=== PATIENT | female | born 1960 | race American Indian/Alaskan Native ===

== ENCOUNTER 2017-04-28 12:56 | Inpatient (IN) | payer OTHER ==
[2017-04-28] MEDS ORDERED: ASPIRIN PO ONE (13:14)
[2017-04-28] MEDS ORDERED: ZOFRAN IV ONE (13:14)
[2017-04-28] MEDS ORDERED: NACL 0.9% 1000 ML 1,000 ML IV ONE (13:14)
[2017-04-28] MEDS ORDERED: XYLOCAINE 2% INFILTRATI ONE (13:20)
[2017-04-28] MEDS ORDERED: HEPARIN/NS 5000 UNIT/500ML(CATH LAB) 1,000 ML IR ONE (13:20)
[2017-04-28] MEDS ORDERED: CALAN ONE (13:20)
[2017-04-28] MEDS ORDERED: NITROGLYCERIN SYRINGE 3 ML ONE (13:20)
--- NOTE | 2017-04-28 13:21 | Emergency Department Report ---
ED Chest Pain HPI - General Chief Complaint: Chest Pain Stated Complaint: CHEST PAIN Time Seen by Provider: 04/28/17 13:06 Source: patient, old records reviewed (no previous visit) Mode of arrival: Ambulatory Limitations: No Limitations - History of Present Illness Initial Comments: 56-year-old female with no known past medical history presents to the hospital complaining of sudden onset chest pain at 11 AM. Pain is in her sternal area, radiating to the back described as sharp and constant and moderate in intensity. Positive shortness of breath, nausea, vomiting, and diaphoresis reported. Intermittent paresthesias to both fingertips both hands. Last time patient saw a primary care doctor was in September. Patient does smoke cigarettes but does not take any medications. She states that her father had a defibrillator placed and her brother had a triple bypass at age 47. Patient has never had any cardiac workup in the past. - Related Data Home Medications Medication Instructions Recorded Confirmed Last Taken No Known Home Medications [No 04/28/17 04/28/17 Unknown Reported Home Medications] Allergies Allergy/AdvReac Type Severity Reaction Status Date / Time No Known Allergies Allergy Verified 04/28/17 13:08 Heart Score - HEART Score History: Moderately suspicious EKG: Significant ST-depression Age: 45-65 Risk factors: 1-2 risk factors Troponin: 1-3x normal limit HEART Score: 6 ED Review of Systems ROS: Stated complaint: CHEST PAIN Other details as noted in HPI Comment: All other systems reviewed and negative Other: Constitutional: No fevers chills Eyes: No eye pain visual changes ENT: No ear pain or throat pain Neck: Denies pain Respiratory: Denies cough wheezing Cardiovascular: Denies palpitations, syncope GI: Denies abdominal pain, diarrhea : Denies dysuria Musculoskeletal: Denies back pain Skin: Denies rash, lesions, erythema Neurologic: Denies headache, numbness, weakness Psychiatric: Denies suicidal ideation, hallucinations ED Past Medical Hx - Past Medical History Previous Medical History?: No - Surgical History Past Surgical History?: No - Social History Smoking Status: Current Every Day Smoker Substance Use Type: None - Medications Home Medications: Home Medications Medication Instructions Recorded Confirmed Last Taken Type No Known Home Medications [No 04/28/17 04/28/17 Unknown History Reported Home Medications] ED Physical Exam - General Limitations: No Limitations - Other Other exam information: General: No limitations, patient is alert in no acute distress Head exam: Atraumatic, normocephalic Eyes exam: Normal appearance ENT: Moist mucous membrane, normal oropharynx Neck exam: Normal inspection, full range of motion, no meningismus nontender Respiratory exam: Clear to auscultation bilateral, no wheezes, rales, crackles Cardiovascular: Normal rate and rhythm, sternal chest wall tenderness that patient reports is different from her other chest pain Abdomen: Soft, nondistended, and nontender, with normal bowel sounds, no rebound, or guarding Extremity: Full range of motion normal inspection no deformity, no calf tenderness or edema Back: Normal Inspection, full range of motion, no tenderness Neurologic: Alert, oriented x3, cranial nerves intact, no motor or sensory deficit Psychiatric: normal affect, normal mood Skin: Warm, dry, intact ED Course Vital Signs 04/28/17 04/28/17 04/28/17 12:56 13:00 13:04 Temperature 98.3 F Pulse Rate 85 85 82 Pulse Rate [ From Monitor] Respiratory 12 16 Rate Blood Pressure 155/86 155/86 O2 Sat by Pulse 100 100 100 Oximetry 04/28/17 04/28/17 04/28/17 13:10 13:15 13:20 Temperature Pulse Rate 90 91 H Pulse Rate [ From Monitor] Respiratory 17 10 L 12 Rate Blood Pressure 155/86 O2 Sat by Pulse 100 100 100 Oximetry 04/28/17 04/28/17 04/28/17 13:27 13:32 15:42 Temperature Pulse Rate 92 H 80 Pulse Rate [ From Monitor] Respiratory Rate Blood Pressure 160/91 160/91 O2 Sat by Pulse 94 Oximetry 04/28/17 04/28/17 04/28/17 15:50 16:00 16:08 Temperature 98.6 F 98.2 F Pulse Rate 79 72 0 L Pulse Rate [ 82 From Monitor] Respiratory 14 14 0 L Rate Blood Pressure 130/79 134/78 0/0 O2 Sat by Pulse 95 96 0 L Oximetry 04/28/17 04/28/17 04/28/17 16:10 16:20 16:30 Temperature Pulse Rate 93 H 77 69 Pulse Rate [ From Monitor] Respiratory 12 14 11 L Rate Blood Pressure 134/78 130/79 144/79 O2 Sat by Pulse 98 98 98 Oximetry 04/28/17 04/28/17 04/28/17 16:40 16:50 17:00 Temperature 97.1 F L Pulse Rate 75 78 80 Pulse Rate [ From Monitor] Respiratory 19 12 14 Rate Blood Pressure 144/79 133/82 145/78 O2 Sat by Pulse 99 98 99 Oximetry 04/28/17 04/28/17 04/28/17 17:10 17:20 17:30 Temperature Pulse Rate 76 77 76 Pulse Rate [ From Monitor] Respiratory 19 24 21 Rate Blood Pressure 145/86 150/86 144/78 O2 Sat by Pulse 97 96 97 Oximetry 04/28/17 17:40 Temperature Pulse Rate 75 Pulse Rate [ From Monitor] Respiratory 15 Rate Blood Pressure 144/78 O2 Sat by Pulse 98 Oximetry - Reevaluation(s) Reevaluation #1: 04/28/17 13:21 Aspirin, nitroglycerin sublingual, heparin bolus ordered - Consultations Consultation #1: 04/28/17 13:10 Dr Baugh will take pt to lab specialist JOAQUIN score - Joaquin Score Age > 65: (0) No Aspirin use within the Past 7 Days: (0) No 3 or more CAD Risk Factors: (1) Yes 2 or more Angina events in past 24 hrs: (0) No Known CAD with more than 50% Stenosis: (0) No Elevated Cardiac Markers: (1) Yes ST Deviation Greater than 0.5mm: (1) Yes JOAQUIN Score: 3 ED Medical Decision Making - Lab Data Result diagrams: 04/30/17 07:31 04/30/17 07:31 - EKG Data -: EKG Interpreted by Me (sinus rate [address] elevation WA) - EKG Data When compared to previous EKG there are: previous EKG unavailable - Radiology Data Radiology results: report reviewed (cxr: naf) - Medical Decision Making EKG possibly has subtle findings of ST elevation WA in the anterior leads. This was reviewed by health and wellness coordinator. Patient will be taken to the [facility] for further treatment. - Differential Diagnosis costochondritis, WA, PE, unstable angina, atypical chest pain, dissection Critical Care Time: No Critical care attestation.: If time is entered above; I have spent that time in minutes in the direct care of this critically ill patient, excluding procedure time. ED Disposition Clinical Impression: Chest pain at rest, STEMI (ST elevation myocardial infarction), Elevated blood pressure reading Disposition: OP ADMIT IP TO THIS HOSP Is pt being admited?: Yes Condition: Stable Time of Disposition: 13:22 (Dr baugh/felipe)
[2017-04-28] MEDS ORDERED: NACL 0.9% 1000 ML 1,000 ML ONE (13:23)
[2017-04-28 13:25] LABS: Basophils % (Auto) 0.7 % (0.0-1.8); Eosinophils % (Auto) 0.6 % (0.0-4.3); Hematocrit 42.5 % (30.3-42.9); Mean Corpuscular HGB Conc 33 % (30-34); Mean Corpuscular Hemoglobin 29 pg (28-32); Mean Corpuscular Volume 87 fl (79-97); Platelet Count 321 K/mm3 (140-440); Red Blood Count 4.86 M/mm3 (3.65-5.03); Red Cell Distribution Width 14.4 % (13.2-15.2); White Blood Count 11.8 K/mm3 (4.5-11.0)
[2017-04-28] MEDS: NITROSTAT SL PRN ×5 (13:27→22:16)
[2017-04-28 13:54] LABS: Creatine Kinase MB 13.5 ng/mL (0.0-4.0)
[2017-04-28 13:55] LABS: Anion Gap 21 mmol/L; BUN/Creatinine Ratio 11.66; Blood Urea Nitrogen 7 mg/dL (7-17); Calcium 8.7 mg/dL (8.4-10.2); Carbon Dioxide 22 mmol/L (22-30); Chloride 96.1 mmol/L (98-107); Creatine Kinase 193 units/L (30-135); Glucose 128 mg/dL (65-100); Potassium 3.6 mmol/L (3.6-5.0); Sodium 135 mmol/L (137-145)
[2017-04-28 13:58] LABS: INR 0.84 (0.87-1.13)
[2017-04-28 13:59] LABS: Partial Thromboplastin Time 24.2 Sec. (24.2-36.6)
[2017-04-28] MEDS: VERSED ONE ×2 (14:00→14:22)
[2017-04-28] MEDS: SUBLIMAZE ONE ×2 (14:00→14:22)
[2017-04-28] MEDS ORDERED: HEPARIN 10,000 UNITS/10 ML IV ONE (14:00)
[2017-04-28] MEDS ORDERED: HEPARIN/ 0.45% NACL-25,000 UNIT/500 ML 25,000 UNIT/500 ML BAG IV SCH (14:00)
[2017-04-28] MEDS: HEPARIN 10,000 UNITS/10 ML ONE ×2 (14:05→14:07)
[2017-04-28] MEDS ORDERED: ZOFRAN ONE (14:19)
[2017-04-28] MEDS ORDERED: EFFIENT PO ONE (14:30)
[2017-04-28] MEDS ORDERED: ALUM-MAG HYDROX-SIMETH 200-200-20MG/5ML ONE (14:30)
[2017-04-28 16:49] LABS: Creatine Kinase MB 275.7 ng/mL (0.0-4.0)
[2017-04-28] MEDS ORDERED: TYLENOL PO PRN (20:19)
[2017-04-28] MEDS ORDERED: ZOFRAN IV PRN (20:19)
[2017-04-28] MEDS: COREG PO SCH (21:14)
[2017-04-28 21:30] LABS: Creatine Kinase MB 249.9 ng/mL (0.0-4.0)
[2017-04-28] MEDS ORDERED: ZESTRIL PO SCH (22:00)
--- NOTE | 2017-04-29 02:55 | Cardiac Catherization Report ---
INDICATION: The patient is a 56-year-old -[place] female started having anterior chest pain at around 10:30 when she was planning to go to [place], persistent chest pain, shortness of breath, nausea, sweating, called her fiance who called the ambulance and brought to the Emergency Room, noted to have mild ST elevations in 1 and aVL suggestive but not diagnostic for anterior left myocardial infarction. Because of persistent chest pain consistent with acute coronary syndrome, the patient was brought to the catheterization laboratory on an emergency basis. The patient and fiance were explained of the procedure, potential complications and alternatives of therapy and agreeable with the plan. They were made aware of the diagnosis of myocardial infarction. DESCRIPTION OF PROCEDURE: The patient was brought to the catheterization laboratory in a fasting condition. Right wrist area and forearm thoroughly cleansed with Betadine solution. Sterile drapes were applied. Local anesthesia was achieved using 2% Xylocaine. Right radial artery puncture was made using 21-gauge arterial puncture needle. Subsequently, a 6-Pakistani sheath was introduced. Initially a 6-Pakistani EBU catheter was engaged in the left coronary artery. This showed evidence of occluded mid LAD with no visualization of the distal vessel. After giving extra dose of IV heparin, a 0.014 inch [place] XT guide wire was advanced into the distal LAD without difficulty. Lesion was dilated with 2.5 x 15 mm balloon to 8 atmospheres, followed by placement of a 2.5 x 18 mm Resolute Integrity stent expanded to 9 atmospheres with very good result. JOAQUIN 3 flow was zero at the beginning and it was JOAQUIN 3 at the end of the procedure. The lesion was reduced from 100% to 0%. No complications of dissection or perforation or embolization noted. The patient did continue to have chest pain, but had reperfusion arrhythmia namely peak ventricular ectopy, which subsided by the end of the procedure. The patient otherwise has been stable hemodynamically. After the intervention of the LAD, angiograms of the right coronary artery were obtained using multipurpose catheter and also left ventriculogram was performed in VERGARA and ETHIOPIAN projection. Following findings were noted. HEMODYNAMICS: 1. Opening aortic pressure 144/78, left ventricular pressure 146/27. No gradient across the aortic valve. Estimated ejection fraction 30-35%. 2. Left ventriculogram done in VERGARA projection shows akinesis of the distal one-third to one-half of the left ventricle with the basal part moving reasonably well. Overall, ejection fraction is moderately impaired in the range of 30-35%. Mitral regurgitation could not be evaluated. 3. Right coronary artery is a dominant vessel shows minimal irregularities, arises normally from right coronary cusp. Left coronary angiography showed left main to be without significant disease. Proximal LAD has mild disease and mid LAD is occluded with no visualization of the distal vessel. Circumflex artery nondominant vessel and its branches are angiographically smooth without significant disease. Proximal diagonal branch shows mild disease. INTERVENTIONAL PROCEDURE: As mentioned above. Intervention of the LAD was performed using right radial access and using EBU 3.5 6-Pakistani guiding catheter. Heparin was used as anticoagulant. A 0.014 inch [place] XT wire was advanced into the distal LAD without difficulty and mid LAD was 100% occluded. Lesion was dilated with 2.5 x 12 mm balloon followed by placement of 2.5 x 18 mm Resolute Integrity stent inflated to 9 atmospheres with very good result. JOAQUIN 3 flow was noted. Lesion was reduced from 100% to 0%. No proximal or distal dissection noted. No evidence of perforation or embolization noted. The patient did have some chest pain after the procedure, but subsided subsequently. Had ventricular arrhythmia during reperfusion which subsided at the end of the procedure. The patient is hemodynamically stable. FINAL IMPRESSION: 1. Anterior left myocardial infarction with significant left ventricular dysfunction including the distal one-third to distal half of the left ventricle with occluded mid LAD, successfully reperfused with drug-eluting stent placement. Circumflex and RCA without significant disease. 2. Significant LV dysfunction with successful drug-eluting stent placement of the mid LAD. The patient will be admitted to CCU and medical therapy will be continued. The patient will be started on aspirin, prasugrel, in addition to Lipitor, carvedilol and lisinopril. The patient's sheath will be removed once ACT is less than 180. No untoward complications were noted. Findings were explained to the patient and fiance. JOB# [id number] RHONDA/DEVANG
--- NOTE | 2017-04-29 03:09 | History and Physical Report ---
HISTORY OF PRESENT ILLNESS: This is a 56-year-old -[place] female, who was getting ready to go to [place] around 10:30, she started having anterior chest pain associated with nausea and vomiting. The pain got worse. She called her and paramedics were called in and the EKG did not show any significant changes; however, because of persistent chest pain, she was brought to the Emergency Room, was evaluated by Dr. Bassett and EKG showed minor ST elevations in 1 and aVL suggestive, if not diagnostic, of acute anterolateral injury. Because of persistent chest pain with sweating, shortness of breath, the patient was taken to the catheterization laboratory on an emergency basis as a part of the STEMI protocol. The patient denies any previous cardiac history. She did not have any chest pain before. She is being followed by a physician in ____ regularly, last time in September, on no medication. No history of hypertension or diabetes or other significant problems. MEDICATIONS AT HOME: None. ALLERGIES: None known. REVIEW OF SYSTEMS: The patient was doing well up to this morning when she started having chest pain. No previous history of hypertension or diabetes. She is smoking for a while. No history of alcohol use or drug use. No history of strokes or seizures. No history of peptic ulcer disease. Denies any fever, coughing, chills. No unusual headaches. PHYSICAL EXAMINATION: VITAL SIGNS: Blood pressure is 140/60, pulse 90 per minute, afebrile. HEENT: Unremarkable. Conjunctivae pink. Sclerae anicteric. NECK: Supple. No JVD. HEART: Regular, probably S4, no S3. LUNGS: Clear. ABDOMEN: Benign. EXTREMITIES: Without edema. NEUROLOGIC: Alert, oriented x3. FINAL IMPRESSION: Acute anterolateral myocardial infarction of few hours' duration with minimal ST changes; however, persistent chest pain. The patient is being scheduled. The patient was taken to the catheterization laboratory as a part of the STEMI protocol and was noted to have occluded mid left artery descending, which was intervened with a balloon angioplasty and drug-eluting stent placement. Right radial artery was used. The procedure was uncomplicated. The patient does have a significant left ventricular dysfunction with akinesis of the distal one-third to one-half of the left ventricle consistent with acute anterolateral myocardial infarction. The patient will be admitted to CCU, monitored closely, and will be continued on aspirin, prasugrel, lisinopril, carvedilol in addition to Lipitor. The patient is hemodynamically stable at this point and rhythm being sinus. Discussed with the patient and her fiance. The patient will be admitted to CCU. JOB# [id number] RHONDA/NTS
[2017-04-29 04:22] LABS: Basophils % (Auto) 0.6 % (0.0-1.8); Eosinophils % (Auto) 0.4 % (0.0-4.3); Hematocrit 39.2 % (30.3-42.9); Hemoglobin 12.7 gm/dl (10.1-14.3); Mean Corpuscular HGB Conc 33 % (30-34); Mean Corpuscular Hemoglobin 28 pg (28-32); Mean Corpuscular Volume 86 fl (79-97); Platelet Count 269 K/mm3 (140-440); Red Blood Count 4.55 M/mm3 (3.65-5.03); Red Cell Distribution Width 14.3 % (13.2-15.2); White Blood Count 12.9 K/mm3 (4.5-11.0)
--- NOTE | 2017-04-29 04:40 | Admit Criteria Form ---
Admission Criteria Documentation: MYOCARDIAL INFARCTION Clinical Indications for Admission to Inpatient Care (Place 'X' for any and all applicable criteria): Admission is indicated for 1 or more of the following (1)(2)(3)(4): [ X]I. Acute IN [ ]II. Contraindications and/or Inappropriate clinical situations for Observational Care in patients with Myocardial Infarction, when ANY ONE of the following is required: [ ]a) Patient with High risk of cardiac embolism (e.g, patients with previous cardiac embolism, LVEF < 40%, age >75 and patients with prosthetic valve) 18 [ ]b) Patient with Moderate risk including DM patient, CAD and patient aged 65-75 18 [ ]c) Patient with any change in cardiac biomarker especially troponin should be managed as high risk in an inpatient setting 19 [ ]d) Physician judgement irrespective of ECG and other diagnostic findings 20 [ ]III.General contraindications and/or Inappropriate clinical situations for Observational Care in patients with Myocardial Infarction, when ANY ONE of the following is required: [ ]a) Prediction of prolongation of LOS based on ANY ONE of the following may be considered as a contraindication for observational care 2, 3, 4, 5, 6, 7, 8, 9, 10, 11 [ ]i) Age > 65 yrs. [ ]ii) Patient arriving by ambulance [ ]iii) Patient with high acuity [ ]iv) Patient requiring vital sign monitoring [ ]v) Patient on IV medication [ ]b) Systolic blood pressures greater than or equal to 180mmHg 3,12 [ ]c) Patient with altered mental status including delirium and other alteration of consciousness, (3) [ ]d) Patient whose discharge disposition will be to a half-way home or rehabilitation home should not be managed in Emergency Department Observation Unit. CMS rule requires 3 days hospital stay before such placement. 3,13 [ ]e) Patient with failure to thrive due to broad array of etiologies 3 ,16,17 [ ]f) Inability to ambulate 3,14 Extended stay beyond goal length of stay may be needed for (1)(18)(20)(24)(25): [ ]a) Hemodynamic instability, persisting symptoms after intensive medical management, or recurring severe, prolonged symptoms [ ]b) Intravascular procedural complications such as acute vessel closure, stent thrombosis, stent malposition, or vessel dissection (26)(27)(28) [ ]c) Extravascular procedural complications such as retroperitoneal hematoma , pericardial effusion, or cardiac tamponade [ ]d) Entry site complications causing bleeding, hematoma or distal ischemia and requiring ongoing monitoring, surgical repair or surgical thrombectomy. Dangerous arrhythmia [ ]e) Complicated percutaneous coronary intervention (e.g., unsuccessful percutaneous coronary intervention or percutaneous coronary intervention of non- [place] vessel) [ ]f) Urgent or emergent surgery for complications of IN (e.g., ventricular rupture, valvular insufficiency) [ ]g) Surgical revascularization via coronary artery bypass graft [ ]h) Heart failure (e.g., pulmonary edema) [ ]i) Unstable pulmonary comorbidities, including COPD or pneumonia (31) [ ]j) Acute renal failure The original [employer] content created by [employer] has been revised. The portions of the content which have been revised are identified through the use of italic text or in bold, and [employer] has neither reviewed nor approved the modified material. All other unmodified content is copyright [facility] [employer] Please see references footnoted in the original [facility] edition 2016 Admission Criteria Met: Yes
[2017-04-29 04:42] LABS: Creatine Kinase MB 226.1 ng/mL (0.0-4.0)
[2017-04-29 04:43] LABS: Anion Gap 17 mmol/L; Blood Urea Nitrogen 5 mg/dL (7-17); Calcium 8.6 mg/dL (8.4-10.2); Carbon Dioxide 24 mmol/L (22-30); Chloride 99.9 mmol/L (98-107); Glucose 98 mg/dL (65-100); Potassium 3.6 mmol/L (3.6-5.0); Sodium 137 mmol/L (137-145)
[2017-04-29 05:07] LABS: Creatine Kinase 2268 units/L (30-135)
--- NOTE | 2017-04-29 07:41 | XRay Report ---
PORTABLE CHEST INDICATION: Chest pain. COMPARISON: None similar at this institution. FINDINGS: Portable, frontal chest radiograph demonstrates normal cardiomediastinal silhouette and clear lungs, given the inspiration. No large pleural effusions or CHF. Few extrinsic artifacts. Intact bones. CONCLUSION: No acute disease. Thank you for the opportunity to participate in this patient's care.
--- NOTE | 2017-04-29 07:57 | XRay Report ---
PORTABLE CHEST INDICATION: Post PCI. COMPARISON: Yesterday. FINDINGS: Portable, frontal chest radiograph, 2:02 AM, 04/29/2017 demonstrates grossly stable cardiomediastinal silhouette. Slight hazy bronchovascular crowding throughout both lungs may be related to poor inspiration. No pleural effusions or CHF. Intact bones. EKG leads. CONCLUSION: No significant acute chest process, as described. Thank you for the opportunity to participate in this patient's care.
--- NOTE | 2017-04-29 09:43 | Progress Note ---
Assessment and Plan pt is awaiting echo, transfer to telemtry, discussed with pt and family at bedside, adjusted bp meds and hold aldactone for low bp - Patient Problems (1) ACS (acute coronary syndrome) Current Visit: Yes Status: Acute (2) Acute combined systolic and diastolic CHF, NYHA class 4 Current Visit: Yes Status: Acute (3) Hypertension Current Visit: Yes Status: Chronic Qualifiers: Hypertension type: essential hypertension Qualified Code(s): I10 - Essential (primary) hypertension (4) Acute respiratory failure Current Visit: Yes Status: Acute Qualifiers: Respiratory failure complication: hypoxia Qualified Code(s): J96.01 - Acute respiratory failure with hypoxia (5) Hyperlipemia, mixed Current Visit: Yes Status: Chronic (6) Smoker Current Visit: Yes Status: Chronic Plan to address problem: pt has been educated about smoking cessation with material and teaching Subjective Date of service: 04/29/17 Principal diagnosis: acs Interval history: pt sitting in the chair without chest pain or sob Objective Vital Signs Temp Pulse Pulse Resp BP Pulse Ox 04/29/17 06:10 75 18 114/70 98 04/29/17 06:00 77 18 124/70 99 04/29/17 05:50 69 18 114/70 99 04/29/17 05:40 82 17 128/74 99 04/29/17 05:33 98.5 F 04/29/17 05:30 65 18 116/73 98 04/29/17 05:20 67 18 120/73 99 04/29/17 05:10 68 18 129/74 98 04/29/17 05:00 67 18 129/74 98 04/29/17 04:50 69 18 128/74 97 04/29/17 04:40 84 19 124/71 97 04/29/17 04:30 66 18 124/71 98 04/29/17 04:20 67 19 125/76 98 04/29/17 04:10 69 18 125/71 97 04/29/17 04:00 70 18 125/71 98 04/29/17 03:50 74 11 L 119/69 97 04/29/17 03:47 71 18 98 04/29/17 03:40 75 16 125/75 98 04/29/17 03:30 75 19 125/75 98 04/29/17 03:20 71 19 126/71 98 04/29/17 03:10 69 16 120/71 98 04/29/17 03:00 68 20 120/71 97 04/29/17 02:50 71 20 130/73 97 04/29/17 02:40 71 19 121/69 97 04/29/17 02:30 65 21 121/69 98 04/29/17 02:20 67 22 116/67 97 04/29/17 02:10 68 11 L 112/66 97 04/29/17 02:00 75 20 112/66 97 04/29/17 01:50 77 20 122/71 97 04/29/17 01:40 69 19 117/66 97 04/29/17 01:30 69 18 116/71 97 04/29/17 01:20 63 18 116/65 98 04/29/17 01:10 67 20 115/69 97 04/29/17 01:00 71 20 115/69 97 04/29/17 00:50 69 21 117/66 97 04/29/17 00:40 68 22 122/69 97 04/29/17 00:36 98.5 F 04/29/17 00:30 67 22 122/69 97 04/29/17 00:20 67 20 123/72 97 04/29/17 00:10 68 16 128/73 98 04/29/17 00:00 66 87 0 L 128/73 98 04/28/17 23:50 67 6 L 128/73 98 04/28/17 23:40 73 21 124/72 99 04/28/17 23:30 67 22 124/72 99 04/28/17 23:20 66 19 120/75 99 04/28/17 23:10 92 H 16 124/67 99 04/28/17 23:00 66 19 124/67 100 04/28/17 22:50 78 12 119/61 99 04/28/17 22:40 69 19 112/67 99 04/28/17 22:30 72 17 112/67 99 04/28/17 22:20 75 15 120/71 99 04/28/17 22:16 71 123/78 04/28/17 22:10 88 14 123/78 97 04/28/17 22:00 76 10 L 132/80 98 04/28/17 21:55 87 147/93 04/28/17 21:50 81 14 147/93 98 04/28/17 21:40 72 25 H 145/90 99 04/28/17 21:30 82 8 L 145/90 100 04/28/17 21:20 71 18 147/86 100 04/28/17 21:14 75 142/89 04/28/17 21:10 71 14 142/89 100 04/28/17 21:00 74 12 142/89 100 04/28/17 20:50 67 12 149/81 100 04/28/17 20:49 98.4 F 04/28/17 20:40 70 19 143/86 100 04/28/17 20:30 81 13 143/86 97 04/28/17 20:20 78 14 139/86 99 04/28/17 20:10 81 13 144/82 99 04/28/17 20:00 73 81 17 144/82 99 04/28/17 19:50 76 14 140/88 98 04/28/17 19:40 96 H 14 135/80 97 04/28/17 19:30 72 14 135/80 99 04/28/17 19:20 82 16 142/80 97 04/28/17 19:10 74 11 L 142/78 99 04/28/17 19:00 77 19 142/78 96 04/28/17 18:50 75 17 143/79 98 04/28/17 18:40 75 17 139/86 98 04/28/17 18:30 85 10 L 139/86 98 04/28/17 18:20 75 14 134/81 98 04/28/17 18:10 74 11 L 132/80 98 04/28/17 18:00 86 15 132/80 98 04/28/17 17:50 77 21 144/78 97 04/28/17 17:40 75 15 144/78 98 04/28/17 17:30 76 21 144/78 97 04/28/17 17:20 77 24 150/86 96 04/28/17 17:10 76 19 145/86 97 04/28/17 17:00 78 16 145/86 99 04/28/17 16:50 78 12 133/82 98 04/28/17 16:40 75 19 144/79 99 04/28/17 16:30 69 11 L 144/79 98 04/28/17 16:20 77 14 130/79 98 04/28/17 16:10 93 H 12 134/78 98 04/28/17 16:08 98.2 F 0 L 0 L 0/0 0 L 04/28/17 16:00 74 82 14 134/78 97 04/28/17 15:50 79 14 130/79 95 04/28/17 15:42 94 - Physical Examination General: Appears Well, No Apparent Distress HEENT: Positive: PERRL, EOMI Neck: Positive: trachea midline Cardiac: Positive: Reg Rate and Rhythm Lungs: Positive: clear to auscultation, Normal Breath Sounds Neuro: Positive: Grossly Intact Abdomen: Positive: Soft /Rectal: Normal Prostate, No Masses Skin: Musculoskeletal: No Fluid Collection, No Pain, Normal Range of Motion Gait: Normal Gait Extremities: Present: normal. Absent: edema - Labs and Meds Cardiac Enzymes 04/28/17 04/28/17 04/29/17 Range/Units 16:09 19:42 03:49 CK-MB (CK-2) 275.7 H 249.9 H 226.1 H (0.0-4.0) ng/mL CBC 04/29/17 Range/Units 03:49 WBC 12.9 H (4.5-11.0) K/mm3 RBC 4.55 (3.65-5.03) M/mm3 Hgb 12.7 (10.1-14.3) gm/dl Hct 39.2 (30.3-42.9) % Plt Count 269 (140-440) K/mm3 Lymph # 3.6 (1.2-5.4) K/mm3 [place] # 0.7 (0.0-0.8) K/mm3 Eos # 0.1 (0.0-0.4) K/mm3 Baso # 0.1 (0.0-0.1) K/mm3 Comprehensive Metabolic Panel 04/29/17 Range/Units 03:49 Sodium 137 (137-145) mmol/L Potassium 3.6 (3.6-5.0) mmol/L Chloride 99.9 (98-107) mmol/L Carbon Dioxide 24 (22-30) mmol/L BUN 5 L (7-17) mg/dL Creatinine 0.5 L (0.7-1.2) mg/dL Glucose 98 (65-100) mg/dL Calcium 8.6 (8.4-10.2) mg/dL - Imaging and Cardiology Echo: pending Cardiac cath: report reviewed (lt main patent, lad mid 100% pci of mid lad with 2.5 x 18 mm nimisha resolute, lcx patent rca patent ef 35%) - Telemetry EKG Rhythm: Sinus Rhythm - EKG Sinus rhythms and dysrhythmias: sinus rhythm (nsr biphasic t wave anterior leads )
[2017-04-29] MEDS ORDERED: EFFIENT PO SCH (10:00)
[2017-04-29] MEDS ORDERED: ZESTRIL PO SCH (10:00)
[2017-04-29] MEDS: PLAVIX PO SCH (10:27)
[2017-04-29] MEDS: COREG PO SCH ×2 (10:27→21:35)
[2017-04-29] MEDS ORDERED: ECOTRIN PO SCH (13:00)
[2017-04-29] MEDS: PEPCID PO SCH (13:10)
[2017-04-29] MEDS ORDERED: LOVENOX SUB-Q SCH (22:00)
[2017-04-29] MEDS ORDERED: BABY ASPIRIN PO SCH (23:30)
[2017-04-30] MEDS ORDERED: ZESTRIL PO SCH ×2 (08:08→12:00)
[2017-04-30 08:48] LABS: Basophils % (Auto) 0.5 % (0.0-1.8); Eosinophils % (Auto) 1.3 % (0.0-4.3); Hematocrit 37.4 % (30.3-42.9); Hemoglobin 12.3 gm/dl (10.1-14.3); Mean Corpuscular HGB Conc 33 % (30-34); Mean Corpuscular Hemoglobin 28 pg (28-32); Mean Corpuscular Volume 86 fl (79-97); Platelet Count 275 K/mm3 (140-440); Red Blood Count 4.34 M/mm3 (3.65-5.03); Red Cell Distribution Width 14.3 % (13.2-15.2); White Blood Count 10.3 K/mm3 (4.5-11.0)
[2017-04-30 09:02] LABS: Alanine Aminotransferase 24 units/L (7-56); Albumin 3.5 g/dL (3.9-5); Albumin/Globulin Ratio 1.3 %; Alkaline Phosphatase 71 units/L (35-129); Anion Gap 15 mmol/L; BUN/Creatinine Ratio 12.85; Blood Urea Nitrogen 9 mg/dL (7-17); Calcium 8.5 mg/dL (8.4-10.2); Carbon Dioxide 26 mmol/L (22-30); Chloride 103.4 mmol/L (98-107); Glucose 86 mg/dL (65-100); Potassium 3.8 mmol/L (3.6-5.0); Sodium 141 mmol/L (137-145); Total Protein 6.1 g/dL (6.3-8.2)
[2017-04-30] MEDS: PEPCID PO SCH (10:00)
[2017-04-30] MEDS: COREG PO SCH (10:00)
[2017-04-30] MEDS: PLAVIX PO SCH (10:00)
--- NOTE | 2017-04-30 11:37 | Progress Note ---
Assessment and Plan echo ef 35-40% with anterior septal and anterior hypokinesis, pt on lisinopril and coreg no aldactone secondary to low bp and cont asa and plavix, ambulate pt and if stable discharge and followup with dr. baugh - Patient Problems (1) ACS (acute coronary syndrome) Current Visit: Yes Status: Acute (2) Acute combined systolic and diastolic CHF, NYHA class 4 Current Visit: Yes Status: Acute (3) Hypertension Current Visit: Yes Status: Chronic Qualifiers: Hypertension type: essential hypertension Qualified Code(s): I10 - Essential (primary) hypertension (4) Acute respiratory failure Current Visit: Yes Status: Acute Qualifiers: Respiratory failure complication: hypoxia Qualified Code(s): J96.01 - Acute respiratory failure with hypoxia (5) Hyperlipemia, mixed Current Visit: Yes Status: Chronic (6) Smoker Current Visit: Yes Status: Chronic Subjective Date of service: 04/30/17 Principal diagnosis: acs Interval history: pt has no chest pain or chf symptoms Objective Vital Signs Temp Pulse Resp BP Pulse Ox 04/30/17 08:07 98.0 F 76 20 108/59 98 04/30/17 08:00 98 04/30/17 05:25 98.1 F 71 20 98/58 97 04/30/17 00:23 97.4 F L 71 20 102/67 98 04/30/17 00:00 98 04/29/17 22:00 72 04/29/17 21:50 77 10 L 110/67 99 04/29/17 21:40 60 18 110/64 100 04/29/17 21:35 75 99/66 04/29/17 21:30 74 23 110/64 100 04/29/17 21:20 81 13 99/66 99 04/29/17 21:10 70 8 L 115/69 99 04/29/17 21:00 77 11 L 115/69 100 04/29/17 20:50 70 20 108/67 99 04/29/17 20:40 68 22 110/70 99 04/29/17 20:30 76 12 110/70 100 04/29/17 20:20 67 20 109/74 99 04/29/17 20:10 82 15 114/69 99 04/29/17 20:00 98.3 F 65 21 114/69 98 04/29/17 19:50 80 8 L 116/69 99 04/29/17 19:40 66 13 110/74 99 04/29/17 19:30 78 12 110/74 98 04/29/17 19:20 77 12 115/81 98 04/29/17 19:10 66 18 105/72 99 04/29/17 19:00 97 H 22 125/80 97 04/29/17 18:50 72 20 125/80 97 04/29/17 18:40 68 20 125/80 96 04/29/17 18:30 70 19 125/80 96 04/29/17 18:20 66 19 125/80 97 04/29/17 18:10 72 20 125/80 97 04/29/17 18:00 64 20 125/80 100 04/29/17 17:50 90 14 125/80 95 04/29/17 17:40 74 20 125/80 99 04/29/17 17:30 77 13 125/80 100 04/29/17 17:20 69 20 123/78 99 04/29/17 17:10 67 14 123/78 98 04/29/17 17:00 86 12 123/78 99 04/29/17 16:50 87 16 125/80 98 04/29/17 16:40 70 10 L 112/72 99 04/29/17 16:30 61 12 112/72 100 04/29/17 16:20 61 14 119/67 100 04/29/17 16:10 91 H 12 121/77 100 04/29/17 16:00 98.6 F 64 18 121/77 100 04/29/17 15:50 76 16 123/74 97 04/29/17 15:40 76 16 113/74 100 04/29/17 15:30 73 16 113/74 99 04/29/17 15:20 69 10 L 123/81 99 04/29/17 15:10 83 16 115/74 100 04/29/17 15:00 86 15 115/74 99 04/29/17 14:50 78 18 119/70 100 04/29/17 14:40 81 14 116/77 100 04/29/17 14:30 80 18 116/77 99 04/29/17 14:20 80 13 117/68 100 04/29/17 14:10 82 11 L 118/73 99 04/29/17 14:00 82 23 118/73 99 07/31/17 13:50 71 17 103/77 100 04/29/17 13:40 62 18 119/71 98 04/29/17 13:30 78 13 119/71 99 04/29/17 13:20 82 8 L 109/73 99 04/29/17 13:10 76 14 117/72 97 04/29/17 13:00 79 13 117/72 100 04/29/17 12:50 83 17 115/88 99 04/29/17 12:40 83 14 123/78 100 04/29/17 12:30 80 11 L 112/79 98 04/29/17 12:20 79 11 L 112/79 99 04/29/17 12:10 75 8 L 104/77 100 04/29/17 12:00 98 F 82 14 104/77 99 04/29/17 11:50 82 11 L 112/71 100 04/29/17 11:40 71 10 L 112/71 99 - Physical Examination General: Appears Well, No Apparent Distress HEENT: Positive: PERRL, EOMI Neck: Positive: trachea midline Cardiac: Positive: Reg Rate and Rhythm Lungs: Positive: clear to auscultation Neuro: Positive: Grossly Intact Abdomen: Positive: Soft /Rectal: Normal Prostate, No Masses Skin: Musculoskeletal: No Fluid Collection, No Pain, Normal Range of Motion Gait: Normal Gait Extremities: Present: normal. Absent: edema - Labs and Meds Cardiac Enzymes 04/30/17 Range/Units 07:31 AST 78 H (5-40) units/L CBC 04/30/17 Range/Units 07:31 WBC 10.3 (4.5-11.0) K/mm3 RBC 4.34 (3.65-5.03) M/mm3 Hgb 12.3 (10.1-14.3) gm/dl Hct 37.4 (30.3-42.9) % Plt Count 275 (140-440) K/mm3 Lymph # 3.2 (1.2-5.4) K/mm3 [place] # 0.8 (0.0-0.8) K/mm3 Eos # 0.1 (0.0-0.4) K/mm3 Baso # 0.0 (0.0-0.1) K/mm3 Comprehensive Metabolic Panel 04/30/17 Range/Units 07:31 Sodium 141 (137-145) mmol/L Potassium 3.8 (3.6-5.0) mmol/L Chloride 103.4 (98-107) mmol/L Carbon Dioxide 26 (22-30) mmol/L BUN 9 (7-17) mg/dL Creatinine 0.7 (0.7-1.2) mg/dL Glucose 86 (65-100) mg/dL Calcium 8.5 (8.4-10.2) mg/dL AST 78 H (5-40) units/L ALT 24 (7-56) units/L Alkaline Phosphatase 71 (35-129) units/L Total Protein 6.1 L (6.3-8.2) g/dL Albumin 3.5 L (3.9-5) g/dL - Imaging and Cardiology Echo: pending, report reviewed Cardiac cath: report reviewed (lt main patent, lad mid 100% pci of mid lad with 2.5 x 18 mm nimisha resolute, lcx patent rca patent ef 35%) - Telemetry EKG Rhythm: Sinus Rhythm - EKG Sinus rhythms and dysrhythmias: sinus rhythm (nsr biphasic t wave anterior leads )
[2017-04-30 12:06] VITALS: BP 112/78
--- NOTE | 2017-04-30 15:05 | Discharge Summary ---
Providers - Providers Date of Admission: 04/28/17 15:26 Date of discharge: 04/30/17 Attending physician: JASON VELASCO 04/28/17 15:34 Consult to Physician [CONS] Stat Consulting Provider: JASON VELASCO Reason For Exam: STEMI Place consult to:: CCU OR CHECKROOM CHIEF Notified:: NO Primary care physician: JERRY HAQUE Hospitalization Condition: Stable Pertinent studies: LHC - see report; echo - see report Hospital course: Pt was admitted on 04/28/2017 with c/o chest pain. Admission 12-lead ECG showed mild elevations in leads 1 and aVL and pt was taken to [facility] cath lab for emergent coronary angiography. She successfully underwent JACK placement to mid LAD, EF was found to be 30 - 35%. Echo following PCI showed ef 35-40% with anterior septal and anterior hypokinesis. Pt remained clinically and hemodynamically stable throughout PCI and recovery and is tolerating activity well today. Pt on lisinopril and coreg no aldactone secondary to low bp and cont asa and plavix. Pt cleared for discharge today and pt is to follow up with Dr. Velasco in our [place] office on 05/13/2017 @ 2:15PM. Disposition: DC-01 TO HOME OR SELFCARE - Discharge Diagnoses (1) ACS (acute coronary syndrome) Status: Acute (2) Acute combined systolic and diastolic CHF, NYHA class 4 Status: Acute (3) Hyperlipemia, mixed Status: Chronic (4) Hypertension Status: Chronic Qualifiers: Hypertension type: essential hypertension Qualified Code(s): I10 - Essential (primary) hypertension (5) Smoker Status: Chronic Core Measure Documentation - Palliative Care Palliative Care/ Comfort Measures: Not Applicable - Core Measures Any of the following diagnoses?: acute OH - Acute OH Discharge Requirements Aspirin at discharge: Yes STEVENSON/ARB for LVSD if EF <40%: Yes Beta veronica at discharge: Yes Statin for LDL = or >100 mg/dl on DC: Yes - Heart Failure Discharge Requirements STEVENSON/ARB for LVSD if EF <40%: Yes Beta veronica at discharge: Yes Exam - Constitutional Vitals: Temp Pulse Resp BP Pulse Ox 98.2 F 80 20 112/78 100 04/30/17 12:35 04/30/17 12:35 04/30/17 12:35 04/30/17 12:35 04/30/17 12:35 General appearance: Present: no acute distress - EENT Eyes: Present: PERRL, EOM intact ENT: hearing intact, clear oral mucosa, dentition normal - Neck Neck: Present: supple, normal ROM - Respiratory Respiratory effort: normal - Cardiovascular Rhythm: regular Heart Sounds: Present: S1 & S2 - Extremities Extremities: no ischemia, pulses intact, pulses symmetrical, No edema, normal temperature, normal color, Full ROM - Abdominal General gastrointestinal: Present: soft, non-tender - Integumentary Integumentary: Present: clear, warm, dry - Musculoskeletal Musculoskeletal: strength equal bilaterally - Psychiatric Psychiatric: appropriate mood/affect Plan Activity: advance as tolerated Diet: low fat, low cholesterol, low salt Wound: open to air, keep clean and dry Follow up with: JERRY HAQUE MD [Primary Care Provider] - 7 Days JASON VELASCO MD [Staff Physician] - 7 Days Prescriptions: AtorvaSTATin [Lipitor] 80 mg PO QHS #30 tablet Carvedilol [Coreg] 6.25 mg PO BID #60 tablet Clopidogrel [Plavix] 75 mg PO QDAY #30 tablet Lisinopril [Zestril TAB] 5 mg PO QDAY #30 tablet Nitroglycerin [Nitrostat] 0.4 mg SL .Q5MIN PRN #30 tablet PRN Reason: Chest Pain
== END 2017-04-30 16:25 | disposition home or self-care (01) | DRG 246 ==
LOC: ED 12:56 → CATH 14:17 → CC1 15:26 → 4A 04-29 23:01
PROVIDERS: ADMIT Internal Medicine; ATTEND Internal Medicine
PROC: 027034Z Dilation of Coronary Artery, One Artery with Drug-eluting Intraluminal Device, Percutaneous Approach (ICD-10-PCS; principal; 2017-04-28)
PROC: 4A023N7 Measurement of Cardiac Sampling and Pressure, Left Heart, Percutaneous Approach (ICD-10-PCS; 2017-04-28)
PROC: B2111ZZ Fluoroscopy of Multiple Coronary Arteries using Low Osmolar Contrast (ICD-10-PCS; 2017-04-28)
PROC: B2151ZZ Fluoroscopy of Left Heart using Low Osmolar Contrast (ICD-10-PCS; 2017-04-28)
DX: I24.9 Acute ischemic heart disease, unspecified (principal); J96.01 Acute respiratory failure with hypoxia; I50.41 Acute combined systolic (congestive) and diastolic (congestive) heart failure; I11.0 Hypertensive heart disease with heart failure; E78.2 Mixed hyperlipidemia; F17.210 Nicotine dependence, cigarettes, uncomplicated; Z71.6 Tobacco abuse counseling
CPT/HCPCS: 36415; 71010; 80048; 80053; 80061; 82550; 82553; 84484; 85025; 85347; 85520; 85610; 85730; 86850; 86900; 86901; 92941; 93005; 93010; 93306; 93458; 96374; 96375; A9270-GY; C1725; C1769; C1874; C1887; C1894; C9606; J1644; J1650; J2250; J2405; J3010; J7030; Q9967

== ENCOUNTER 2018-12-11 15:27 | Outpatient (CLI) | payer BC, MEDICARE ==
--- NOTE | 2018-12-11 19:35 | Cat Scan Report ---
PROCEDURE: CT ABDOMEN PELVIS WO/W CON HISTORY: GROSS HEMATURIA FINDINGS: Unenhanced CT of the abdomen and pelvis was performed following contrast-enhanced CT of the abdomen and pelvis obtained following the intravenous administration of iodinated contrast. The heart is normal in size. There is right middle lobe and lingular linear atelectasis. ABDOMEN: There is no renal or ureteral calculus. No suspect focal renal lesion is seen. Both kidneys excrete c ontrast normally. The ureters are normal in course, caliber and appearance. There are liver cysts. No suspect focal hepatic lesion is seen. The spleen and right adrenal gland ar e unremarkable. There is a left adrenal adenoma, 1.0 cm. No focal pancreatic lesion is seen. There is no small or large bowel obstruction. There is aortic atherosclerotic change without aneurysm al dilation of the aorta. There is a fat-containing umbilical hernia. Pelvis: There has been appendectomy. There is no evidence of diverticulitis. There bach been a hysterectomy. Th e urinary bladder is within normal limits. There is no free air. Impression: ABDOMEN: No renal or ureteral calculus No suspect focal renal mass Liver cysts Pelvis: Hysterectomy This document is electronically signed by Justyn Connell MD., December 11 2018 07:33:27 PM ET
== END 2018-12-11 15:28 | disposition home or self-care (01) ==
LOC: CT 15:27
PROVIDERS: ATTEND Family Medicine
DX: K76.89 Other specified diseases of liver (principal); I11.0 Hypertensive heart disease with heart failure; I50.41 Acute combined systolic (congestive) and diastolic (congestive) heart failure; Z90.710 Acquired absence of both cervix and uterus; Z87.891 Personal history of nicotine dependence
CPT/HCPCS: 74178; Q9967

== ENCOUNTER 2020-02-18 09:49 | Inpatient (IN) | payer MEDICARE ==
--- NOTE | 2020-02-18 10:30 | XRay Report ---
CHEST 1 VIEW INDICATION: Chest Pain. COMPARISON: FINDINGS: SUPPORT DEVICES: None. HEART / MEDIASTINUM: Cardiac enlargement is present. LUNGS / PLEURA: Diffuse interstitial pulmonary edema is present. No pneumothorax. ADDITIONAL FINDINGS: IMPRESSION: 1. Diffuse interstitial pulmonary edema, left ventricular decompensation is a concern Signer Name: Mathieu Álvarez MD Signed: 02/18/2020 10:26 AM Workstation Name: [id number]
[2020-02-18 10:41] LABS: Hemoglobin 13.3 gm/dl (10.1-14.3); Red Blood Count 4.74 M/mm3 (3.65-5.03)
[2020-02-18 10:51] LABS: INR 0.9 (0.87-1.13)
[2020-02-18] MEDS ORDERED: fentaNYL 100 MCG/2 ML INJ IV ONE (10:53)
[2020-02-18] MEDS ORDERED: ASPIRIN 325 MG TAB PO ONE (10:53)
[2020-02-18] MEDS ORDERED: NITROGLYCERIN 2% OINT 1 GM TP ONE (10:53)
[2020-02-18] MEDS ORDERED: ONDANSETRON 4 MG/2 ML INJ IV ONE (10:53)
--- NOTE | 2020-02-18 11:03 | Emergency Department Report ---
HPI - General Chief Complaint: Chest Pain Time Seen by Provider: 02/18/20 10:41 - HPI HPI: Room 4 The patient is a 59-year-old female present with a chief complaint of chest pain and shortness of breath. The patient states for the past 4 days she is had a constant left-sided chest pain described as a pulling dull pain. Patient is to shortness of breath nausea/vomiting and diaphoresis with her chest pain. Patient is to dyspnea on exertion and multiple pillow orthopnea for the past 4 days. Patient states she had a cough 4 days ago that was nonproductive but has since resolved. Patient denies history of fever. The patient currently gives her chest pain score 4/10. The patient had a cardiac stent placed approximately 2 years ago. The patient states after becoming unemployed recently she has been attempting to stretch her cardiac medications out ED Past Medical Hx - Past Medical History Previous Medical History?: Yes Hx Heart Attack/AMI: Yes Hx Congestive Heart Failure: Yes - Surgical History Past Surgical History?: Yes Additional Surgical History: cardiac stent - Family History Family history: no significant - Social History Smoking Status: Light Tobacco Smoker Substance Use Type: None (Denies illicit drug use) - Medications Home Medications: Home Medications Medication Instructions Recorded Confirmed Last Taken Type Aspirin [Aspirin BABY CHEW TAB] 81 mg PO QDAY tab.chew 04/30/17 Unknown Rx AtorvaSTATin [Lipitor] 80 mg PO QHS #30 tablet 04/30/17 Unknown Rx Clopidogrel [Plavix] 75 mg PO QDAY #30 tablet 04/30/17 Unknown Rx Nitroglycerin [Nitrostat] 0.4 mg SL .Q5MIN PRN #30 tablet 04/30/17 Unknown Rx carvediloL [Coreg] 6.25 mg PO BID #60 tablet 04/30/17 Unknown Rx lisinopriL [Zestril TAB] 5 mg PO QDAY #30 tablet 04/30/17 Unknown Rx ED Review of Systems ROS: Stated complaint: SOB Other details as noted in HPI Constitutional: diaphoresis. denies: fever Eyes: denies: eye pain ENT: denies: throat pain Respiratory: cough, orthopnea, shortness of breath, SOB with exertion Cardiovascular: chest pain, dyspnea on exertion, orthopnea Endocrine: no symptoms reported Gastrointestinal: denies: abdominal pain Genitourinary: denies: dysuria Musculoskeletal: denies: back pain Neurological: denies: headache Physical Exam - Physical Exam Vital Signs: Vital Signs 02/18/20 09:53 Temperature 97.9 F Pulse Rate 97 H Respiratory 20 Rate Blood Pressure 128/91 O2 Sat by Pulse 100 Oximetry Physical Exam: GENERAL: The patient is well-developed well-nourished female lying on stretcher not appearing to be in acute distress. [] HEENT: Normocephalic. Atraumatic. Extraocular motions are intact. Patient has moist mucous membranes. NECK: Supple. Trachea midline CHEST/LUNGS: Clear to auscultation. There is no respiratory distress noted. HEART/CARDIOVASCULAR: Regular. There is no tachycardia. There is no gallop rub or murmur. ABDOMEN: Abdomen is soft, nontender. Patient has normal bowel sounds. There is no abdominal distention. SKIN: There is no rash. There is trace pedal edema. There is no diaphoresis. NEURO: The patient is awake, alert, and oriented. The patient is cooperative. The patient has normal speech MUSCULOSKELETAL: There is no evidence of acute injury. ED Course Vital Signs 02/18/20 09:53 Temperature 97.9 F Pulse Rate 97 H Respiratory 20 Rate Blood Pressure 128/91 O2 Sat by Pulse 100 Oximetry ED Medical Decision Making - Lab Data Result diagrams: 02/18/20 10:30 02/18/20 10:30 - EKG Data -: EKG Interpreted by Me EKG shows normal: sinus rhythm Rate: normal - EKG Data When compared to previous EKG there are: no significant change Interpretation: nonspecific ST-T wave dequan - Radiology Data Radiology results: report reviewed (Chest x-ray), image reviewed (Chest x-ray) interpreted by me: Chest x-ray-CHF. No pneumothorax Findings [facility] [address] [place] [address] XRay Report Signed Patient: BABITA LIMA MR#: [id number] : 1960 Acct:[id number] Age/Sex: 59 / F ADM Date: 02/18/20 Loc: ED Attending Dr: Ordering Physician: TERENCE EDWARDS MD Date of Service: 02/18/20 Procedure(s): XR chest 1V ap Accession Number(s): [id number] cc: ED MD GRACE Fluoro Time In Minutes: CHEST 1 VIEW INDICATION: Chest Pain. COMPARISON: FINDINGS: SUPPORT DEVICES: None. HEART / MEDIASTINUM: Cardiac enlargement is present. LUNGS / PLEURA: Diffuse interstitial pulmonary edema is present. No pneumothorax. ADDITIONAL FINDINGS: IMPRESSION: 1. Diffuse interstitial pulmonary edema, left ventricular decompensation is a concern Signer Name: Mathieu Álvarez MD Signed: 02/18/2020 10:26 AM Workstation Name: [id number] Transcribed By: WG Dictated By: Mathieu Álvarez MD Electronically Authenticated By: Mathieu Álvarez MD Signed Date/Time: 02/18/20 1026 DD/ 1025 TD/TT: - Differential Diagnosis CHF, ACS, pericarditis, GERD Critical care attestation.: If time is entered above; I have spent that time in minutes in the direct care of this critically ill patient, excluding procedure time. ED Disposition Clinical Impression: Chest pain at rest, Acute exacerbation of CHF (congestive heart failure) Disposition: OP ADMIT IP TO THIS HOSP Is pt being admited?: Yes Does the pt Need Aspirin: Yes Condition: Fair Instructions: Chest Pain (ED) Time of Disposition: 11:15 (Hospitalist paged)
[2020-02-18 11:05] LABS: BUN/Creatinine Ratio 11; Blood Urea Nitrogen 10 mg/dL (7-17); Calcium 9.5 mg/dL (8.4-10.2); Hemolysis Index 2
[2020-02-18 11:06] LABS: Basophils # (Auto) 0.1 K/mm3 (0.0-0.1); Basophils % (Auto) 1.4 % (0.0-1.8); Eosinophils # (Auto) 0.1 K/mm3 (0.0-0.4); Eosinophils % (Auto) 1.3 % (0.0-4.3); Hematocrit 40.6 % (30.3-42.9); Lymphocytes # (Auto) 2.7 K/mm3 (1.2-5.4); Lymphocytes % (Auto) 37.2 % (13.4-35.0); Mean Corpuscular HGB Conc 33 % (30-34); Mean Corpuscular Volume 86 fl (79-97); Monocytes # (Auto) 0.4 K/mm3 (0.0-0.8); Monocytes % (Auto) 5.3 % (0.0-7.3); Platelet Count 260 K/mm3 (140-440); Red Cell Distribution Width 14.8 % (13.2-15.2)
[2020-02-18] MEDS ORDERED: FUROSEMIDE 40 MG/4 ML INJ IV ONE (11:14)
[2020-02-18] MEDS ORDERED: NITROGLYCERIN 0.4 MG TAB SUBL SL PRN (16:09)
--- NOTE | 2020-02-18 16:09 | History and Physical Report ---
History of Present Illness Date of examination: 02/18/20 Date of admission: 02/18/20 11:18 Chief complaint: Chest pain, shortness of breath last 3 to 4 days For since last night History of present illness: Very pleasant obese 59-year-old female patient with significant past medical history of coronary artery disease status post PCI, congestive heart failure Dyslipidemia, noncompliant with medications due to social issues, has been experiencing worsening shortness of breath , 4 pillow orthopnea and reduced effort tolerance for the last for 5 days worse since night Patient rates her chest pain between 4-5/10, intermittent last for about 5 to 10 minutes no aggravating or relieving factors Associated with shortness of breath nausea no vomiting or diaphoresis. Patient lost her job and was noncompliant with medications Mild nausea, denies vomiting or abdominal pain For set of cardiac enzymes negative Checks x-ray shows pulmonary edema and congestive heart failure Past History Past Medical History: CAD, hypertension, hyperlipidemia. denies: diabetes Past Surgical History: PTCA Social history: lives with family, smoking, full code. denies: alcohol abuse, prescription drug abuse Family history: hypertension Medications and Allergies Allergies Allergy/AdvReac Type Severity Reaction Status Date / Time No Known Allergies Allergy Verified 04/28/17 13:08 Home Medications Medication Instructions Recorded Confirmed Last Taken Type Aspirin [Aspirin BABY CHEW TAB] 81 mg PO QDAY tab.chew 04/30/17 02/18/20 02/17/20 Rx AtorvaSTATin [Lipitor] 80 mg PO QHS #30 tablet 04/30/17 02/18/20 02/18/20 17:39 Rx Clopidogrel [Plavix] 75 mg PO QDAY #30 tablet 04/30/17 02/18/20 02/17/20 Rx carvediloL [Coreg] 6.25 mg PO BID #60 tablet 04/30/17 02/18/20 02/17/20 Rx lisinopriL [Zestril TAB] 5 mg PO QDAY #30 tablet 04/30/17 02/18/20 02/17/20 Rx Losartan Potassium 25 mg PO DAILY 02/18/20 02/18/20 02/17/20 History Active Meds: Active Medications Aspirin (Baby Aspirin) 81 mg PO QDAY YEVGENIY Review of Systems Constitutional: fatigue, no weight loss, no weight gain Ears, nose, mouth and throat: no nasal congestion, no nasal discharge Cardiovascular: chest pain, orthopnea, shortness of breath, dyspnea on exertion Respiratory: shortness of breath, dyspnea on exertion Gastrointestinal: nausea, no abdominal pain, no vomiting Genitourinary Female: no flank pain, no dysuria Musculoskeletal: no myalgias, no arthritis Integumentary: no rash, no lesions Neurological: no seizures, no syncope Psychiatric: no anxiety, no depression Endocrine: no cold intolerance, no heat intolerance Hematologic/Lymphatic: no easy bruising, no easy bleeding Allergic/Immunologic: no urticaria, no allergic rhinitis Exam - Constitutional Vitals: Temp Pulse Resp BP Pulse Ox 97.9 F 91 H 20 127/85 100 02/18/20 09:53 02/18/20 11:53 02/18/20 09:53 02/18/20 11:53 02/18/20 09:53 General appearance: Present: mild distress, well-nourished, obese - EENT Eyes: Present: PERRL, EOM intact - Neck Neck: Present: supple, normal ROM - Respiratory Respiratory effort: normal Respiratory: bilateral: diminished, rales, negative: rhonchi, wheezing - Cardiovascular Rhythm: regular Heart Sounds: Present: S1 & S2 - Extremities Extremities: no ischemia, No edema - Abdominal General gastrointestinal: Present: soft, non-tender, non-distended, normal bowel sounds - Integumentary Integumentary: Present: clear, warm - Musculoskeletal Musculoskeletal: strength equal bilaterally, generalized weakness - Psychiatric Psychiatric: appropriate mood/affect, cooperative - Neurologic Neurologic: moves all extremities HEART Score - HEART Score Troponin: Troponin T < 0.010 ng/mL (0.00-0.029) 02/18/20 14:17 Results - Labs CBC & Chem 7: 02/18/20 10:30 02/18/20 10:30 Labs: Abnormal lab results 02/18/20 02/18/20 02/18/20 Range/Units 10:30 10:30 10:30 Lymph % (Auto) 37.2 H (13.4-35.0) % APTT 23.0 L (24.2-36.6) Sec. Glucose 108 H (65-100) mg/dL NT-Pro-B Natriuret Pep (0-900) pg/mL 02/18/20 Range/Units 10:42 Lymph % (Auto) (13.4-35.0) % APTT (24.2-36.6) Sec. Glucose (65-100) mg/dL NT-Pro-B Natriuret Pep 1527 H (0-900) pg/mL Assessment and Plan --Chest pain; evaluate for acute coronary syndrome Patient Has significant coronary artery disease Serial cardiac enzymes, EKG as needed, echocardiogram For LV function ejection fraction. Cardiology consult --h/o CAD status post PCI; Patient has been noncompliant with medications Resume home cardiac meds, Aspirin Plavix beta blockers STEVENSON inhibitors nitrates --Dyslipidemia; continue statin Low-cholesterol diet --Acute on chronic systolic congestive heart failure; Anti-failure medications, input output monitoring Low-sodium diet, fluid restriction --DVT prophylaxis; Lovenox --Full CODE STATUS --Ongoing tobacco use; advised smoking cessation Nicotine patch as needed We will closely monitor the patient and adjust the management as needed Plan of care reviewed with the patient and her nurse
[2020-02-18] MEDS: ENOXAPARIN 40 MG/0.4 ML INJ SUB-Q SCH (21:32)
[2020-02-18] MEDS: carvediloL 6.25 MG TAB PO SCH (21:32)
[2020-02-19 05:38] LABS: Chol/HDL Ratio 4.42 %; HDL Cholesterol 40 mg/dL (40-59); LDL Cholesterol,Direct 118 mg/dL (50-130)
[2020-02-19] MEDS: CLOPIDOGREL 75 MG TAB PO SCH (09:05)
[2020-02-19] MEDS: FUROSEMIDE 40 MG/4 ML INJ IV SCH (09:06)
[2020-02-19] MEDS: ASPIRIN 81 MG TAB CHEW PO SCH (09:06)
[2020-02-19] MEDS: carvediloL 6.25 MG TAB PO SCH ×2 (09:06→21:57)
[2020-02-19] MEDS ORDERED: LISINOPRIL 5 MG TAB PO SCH (10:00)
--- NOTE | 2020-02-19 11:01 | Progress Note ---
Assessment and Plan Assessment and plan: --Chest pain; evaluate for acute coronary syndrome Patient Has significant coronary artery disease 3 sets of cardiac enzymes negative Echo; ejection fraction 10 to 15% Cardiology recommend further ischemia work-up Medications optimized --h/o CAD status post PCI; Patient has been noncompliant with medications Resume home cardiac meds, Aspirin Plavix beta blockers STEVENSON inhibitors nitrates --Dyslipidemia; continue statin Low-cholesterol diet --Acute on chronic systolic congestive heart failure; EF 10 to 15% Low-sodium diet, fluid restriction Anti-failure medications, input output monitoring Patient needs LifeVest, ultimately defibrillator Cardiology planning left heart catheterization next next week Meanwhile medications will be optimized --DVT prophylaxis; Lovenox --Full CODE STATUS --Ongoing tobacco use; advised smoking cessation Nicotine patch as needed We will closely monitor the patient and adjust the management as needed Plan of care reviewed with the patient and her nurse History Interval history: Patient seen at the bedside this morning Medical records reviewed, patient feels slightly better Had echocardiogram pending report Cardiology evaluating the patient Patient's shortness of breath significantly improved Complains of intermittent chest pain Vital signs noted Hospitalist Physical - Constitutional Vitals: Temp Pulse Resp BP Pulse Ox 98.5 F 86 20 117/81 99 02/19/20 07:59 02/19/20 09:06 02/19/20 07:59 02/19/20 09:06 02/19/20 07:59 General appearance: Present: mild distress, well-nourished, obese - EENT Eyes: Present: PERRL, EOM intact - Neck Neck: Present: supple, normal ROM - Respiratory Respiratory effort: normal Respiratory: bilateral: diminished, rales, negative: rhonchi, wheezing - Cardiovascular Rhythm: regular Heart Sounds: Present: S1 & S2 - Extremities Extremities: no ischemia Extremity abnormal: edema - Abdominal General gastrointestinal: soft, non-tender, non-distended, normal bowel sounds - Integumentary Integumentary: Present: clear, warm - Psychiatric Psychiatric: appropriate mood/affect, cooperative - Neurologic Neurologic: moves all extremities HEART Score - HEART Score Troponin: Troponin T < 0.010 ng/mL (0.00-0.029) 02/19/20 04:03 Results - Labs CBC & Chem 7: 02/18/20 10:30 02/18/20 10:30 Labs: Laboratory Last Values WBC 7.4 K/mm3 (4.5-11.0) 02/18/20 10:30 RBC 4.74 M/mm3 (3.65-5.03) 02/18/20 10:30 Hgb 13.3 gm/dl (10.1-14.3) 02/18/20 10:30 Hct 40.6 % (30.3-42.9) 02/18/20 10:30 MCV 86 fl (79-97) 02/18/20 10:30 MCH 28 pg (28-32) 02/18/20 10:30 MCHC 33 % (30-34) 02/18/20 10:30 RDW 14.8 % (13.2-15.2) 02/18/20 10:30 Plt Count 260 K/mm3 (140-440) 02/18/20 10:30 Lymph % (Auto) 37.2 % (13.4-35.0) H 02/18/20 10:30 Ashe % (Auto) 5.3 % (0.0-7.3) 02/18/20 10:30 Eos % (Auto) 1.3 % (0.0-4.3) 02/18/20 10:30 Baso % (Auto) 1.4 % (0.0-1.8) 02/18/20 10:30 Lymph # 2.7 K/mm3 (1.2-5.4) 02/18/20 10:30 Ashe # 0.4 K/mm3 (0.0-0.8) 02/18/20 10:30 Eos # 0.1 K/mm3 (0.0-0.4) 02/18/20 10:30 Baso # 0.1 K/mm3 (0.0-0.1) 02/18/20 10:30 Seg Neutrophils % 54.8 % (40.0-70.0) 02/18/20 10:30 Seg Neutrophils # 4.0 K/mm3 (1.8-7.7) 02/18/20 10:30 PT 12.3 Sec. (12.2-14.9) 02/18/20 10:30 INR 0.90 (0.87-1.13) 02/18/20 10:30 APTT 23.0 Sec. (24.2-36.6) L 02/18/20 10:30 Sodium 143 mmol/L (137-145) 02/18/20 10:30 Potassium 4.6 mmol/L (3.6-5.0) 02/18/20 10:30 Chloride 106.9 mmol/L (98-107) 02/18/20 10:30 Carbon Dioxide 25 mmol/L (22-30) 02/18/20 10:30 Anion Gap 16 mmol/L 02/18/20 10:30 BUN 10 mg/dL (7-17) 02/18/20 10:30 Creatinine 0.9 mg/dL (0.7-1.2) 02/18/20 10:30 Estimated GFR > 60 ml/min 02/18/20 10:30 BUN/Creatinine Ratio 11 % 02/18/20 10:30 Glucose 108 mg/dL (65-100) H 02/18/20 10:30 Calcium 9.5 mg/dL (8.4-10.2) 02/18/20 10:30 Total Creatine Kinase 62 units/L (30-135) 02/19/20 04:03 CK-MB (CK-2) 1.0 ng/mL (0.0-4.0) 02/19/20 04:03 CK-MB (CK-2) Rel Index 1.6 (0-4) 02/19/20 04:03 Troponin T < 0.010 ng/mL (0.00-0.029) 02/19/20 04:03 NT-Pro-B Natriuret Pep 1527 pg/mL (0-900) H 02/18/20 10:42 Triglycerides 157 mg/dL (2-149) H 02/19/20 04:03 Cholesterol 177 mg/dL (50-199) 02/19/20 04:03 LDL Cholesterol Direct 118 mg/dL (50-130) 02/19/20 04:03 HDL Cholesterol 40 mg/dL (40-59) 02/19/20 04:03 Cholesterol/HDL Ratio 4.42 % 02/19/20 04:03 HCG, Qual Negative (Negative) 02/18/20 10:30 Albright/IV: Voiding Method Toilet IV Catheter Type [Left Hand] Peripheral IV Active Medications - Current Medications Current Medications: Generic Name Dose Route Start Last Admin Trade Name Freq PRN Reason Stop Dose Admin Aspirin 81 mg 02/19/20 10:00 02/19/20 09:06 Baby Aspirin PO 81 mg QDAY YEVGENIY Administration Atorvastatin Calcium 80 mg 02/18/20 22:00 02/18/20 21:32 Lipitor PO 80 mg QHS YEVGENIY Administration Carvedilol 6.25 mg 02/18/20 22:00 02/19/20 09:06 Coreg PO 6.25 mg BID YEVGENIY Administration Clopidogrel Bisulfate 75 mg 02/19/20 10:00 02/19/20 09:05 Plavix PO 75 mg QDAY YEVGENIY Administration Enoxaparin Sodium 40 mg 02/18/20 22:00 02/18/20 21:32 Enoxaparin SUB-Q 40 mg QDAY@2200 YEVGENIY Administration Furosemide 40 mg 02/19/20 10:00 02/19/20 09:06 Lasix IV 40 mg QDAY YEVGENIY Administration Lisinopril 5 mg 02/19/20 10:00 02/19/20 09:05 Zestril PO 5 mg QDAY YEVGENIY Administration Nitroglycerin 0.4 mg 02/18/20 16:09 Nitrostat SL .Q5MIN PRN Chest Pain Nutrition/Malnutrition Assess - Dietary Evaluation Nutrition/Malnutrition Findings: Nutrition Notes Start: 02/19/20 09:03 Freq: Status: Active Protocol: Document 02/19/20 09:03 CHANDRA (Rec: 02/19/20 09:03 CHANDRA [id number]) Nutrition 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 Nutrition Intervention Revisit per MD consult or patient Sign Off request:
--- NOTE | 2020-02-19 13:12 | Consultation ---
History of Present Illness Consult date: 02/19/20 Requesting physician: MORGAN REY Consult reason: congestive heart failure History of present illness: The patient is a 59-year-old female with a past medical history of CAD s/p AMI with PCI to LAD, CMP, HFrEF, HTN, HLP, former tobacco smoker. She is followed in our office by Dr. Drake. She presented with c/o progressively worsening SOB, DE LE[place], BLE swelling and intermittent chest pain for the past month. Pt states that she recently became unemployed and has been trying to "stretch out" her cardiac medications. She admits that she has been ignoring her symptoms due to fear of coming to the hospital during the coronavirus pandemic. She has not been seen in our office since 09/2018. She describes her chest pain as a left-sided intermittent dull pain. She denies any palpitations, n/v, diaphoresis, dizziness or syncope. CXR shows pulmonary edema, pro-BNP elevated. Echo done 04/2017 showed EF 25-30%, grade 3 diastolic dysfunction. LHC done 03/2017 for AMI with PCI to mid LAD with JACK, EF 30-35%. LHC done 09/2017 showed minimal CAD (mid LAD to distal LAD lesion 10% stenosed) with patent distal LAD stent, EF 20-34%. Past History Past Medical History: CAD, heart failure, hypertension, hyperlipidemia, other (as per HPI). denies: diabetes Past Surgical History: PTCA Social history: lives with family, smoking, full code. denies: alcohol abuse, prescription drug abuse Family history: hypertension Medications and Allergies Allergies Allergy/AdvReac Type Severity Reaction Status Date / Time No Known Allergies Allergy Verified 04/28/17 13:08 Home Medications Medication Instructions Recorded Confirmed Last Taken Type Aspirin [Aspirin BABY CHEW TAB] 81 mg PO QDAY tab.chew 04/30/17 02/18/20 02/17/20 Rx AtorvaSTATin [Lipitor] 80 mg PO QHS #30 tablet 04/30/17 02/18/20 02/18/20 17:39 Rx Clopidogrel [Plavix] 75 mg PO QDAY #30 tablet 04/30/17 02/18/20 02/17/20 Rx carvediloL [Coreg] 6.25 mg PO BID #60 tablet 04/30/17 02/18/20 02/17/20 Rx lisinopriL [Zestril TAB] 5 mg PO QDAY #30 tablet 04/30/17 02/18/20 02/17/20 Rx Losartan Potassium 25 mg PO DAILY 02/18/20 02/18/20 02/17/20 History Active Meds: Active Medications Aspirin (Baby Aspirin) 81 mg PO QDAY [facility] Last Admin: 02/19/20 09:06 Dose: 81 mg Documented by: Atorvastatin Calcium (Lipitor) 80 mg PO QHS [facility] Last Admin: 02/18/20 21:32 Dose: 80 mg Documented by: Carvedilol (Coreg) 6.25 mg PO BID [facility] Last Admin: 02/19/20 09:06 Dose: 6.25 mg Documented by: Clopidogrel Bisulfate (Plavix) 75 mg PO QDAY [facility] Last Admin: 02/19/20 09:05 Dose: 75 mg Documented by: Enoxaparin Sodium (Enoxaparin) 40 mg SUB-Q QDAY@2200 [facility] Last Admin: 02/18/20 21:32 Dose: 40 mg Documented by: Furosemide (Lasix) 40 mg IV QDAY [facility] Last Admin: 02/19/20 09:06 Dose: 40 mg Documented by: Lisinopril (Zestril) 5 mg PO QDAY [facility] Last Admin: 02/19/20 09:05 Dose: 5 mg Documented by: Nitroglycerin (Nitrostat) 0.4 mg SL .Q5MIN PRN PRN Reason: Chest Pain Review of Systems Constitutional: no fever, no chills, no sweats Ears, nose, mouth and throat: no ear pain, no nose pain, no sinus pressure, no sinus pain Cardiovascular: chest pain, orthopnea, edema, shortness of breath, dyspnea on exertion, paroxysmal nocturnal dyspnea, high blood pressure, leg edema, decreased exercise tolerance, no palpitations, no rapid/irregular heart beat, no syncope, no lightheadedness Respiratory: shortness of breath, dyspnea on exertion, no cough, no congestion, no wheezing, no pain on inspiration Gastrointestinal: no abdominal pain, no nausea, no vomiting, no diarrhea, no c onstipation, no change in bowel habits Genitourinary Female: no pelvic pain, no flank pain, no dysuria, no urinary frequency, no urgency Musculoskeletal: no neck stiffness, no neck pain, no shooting arm pain, no arm numbness/tingling, no low back pain, no shooting leg pain Integumentary: no rash, no pruritis, no redness, no sores, no wounds Neurological: no head injury, no paralysis, no weakness, no parathesias, no numbness, no tingling, no seizures, no syncope Psychiatric: no anxiety Endocrine: no cold intolerance, no heat intolerance Hematologic/Lymphatic: no easy bruising Allergic/Immunologic: no urticaria Physical Examination Vital Signs Temp Pulse Resp BP Pulse Ox 97.9 F 97 H 20 128/91 100 02/18/20 09:53 02/18/20 09:53 02/18/20 09:53 02/18/20 09:53 02/18/20 09:53 General appearance: no acute distress HEENT: Positive: PERRL, Normocephaly, Mucus Membranes Moist Neck: Positive: neck supple, trachea midline Cardiac: Positive: Reg Rate and Rhythm, S1/S2 Lungs: Positive: Decreased Breath Sounds Neuro: Positive: Grossly Intact Abdomen: Negative: Tender Skin: Negative: Rash Musculoskeletal: No Pain Extremities: Present: edema (trace BLE) Results 02/18/20 10:30 02/18/20 10:30 Cardiac Enzymes 02/19/20 Range/Units 04:03 CK-MB (CK-2) 1.0 (0.0-4.0) ng/mL Lipids 02/19/20 Range/Units 04:03 Triglycerides 157 H (2-149) mg/dL Cholesterol 177 (50-199) mg/dL HDL Cholesterol 40 (40-59) mg/dL Cholesterol/HDL Ratio 4.42 % - Imaging and Cardiology Echo: report reviewed (04/2017 showed EF 25-30%, grade 3 diastolic dysfunction. ) Cardiac cath: report reviewed (LHC done 03/2017 for AMI with PCI to mid LAD with JACK, EF 30-35%.LHC done 09/2017 showed minimal CAD (mid LAD to distal LAD lesion 10% stenosed) with patent distal LAD stent, EF 20-34%. ) EKG: report reviewed, image reviewed EKG interpretations - Telemetry EKG Rhythm: Sinus Rhythm - EKG Sinus rhythms and dysrhythmias: sinus rhythm Myocardial infarction: anterior ID (old age or i Assessment and Plan tte reviewed - EF 10-15%, LV severely dilated, restrictive diastolic filling pattern, mod MR. Agree with GDMT and IV lasix as tolerated. AMI r/o. Coronary angiography recommended in setting of chest pain and reduction in EF with h/o CAD s/p PCI. Indications, potential risks and benefits reviewed with pt and she is agreeable to proceed with [facility] next week (02/23/2020). Additionally, pt may benefit from cardiac defibrillator in setting of long- standing h/o CMP with now significantly reduced EF. LifeVest recommended at this time. However, pt is currently declining LifeVest and wishes to address AICD candidacy with her primary pediatric associate, Dr. Drake, as OP. Will follow. The patient has been seen in conjunction with Dr. Simone Jesus who agrees with the assessment and plan of care. - Patient Problems (1) Acute on chronic HFrEF (heart failure with reduced ejection fraction) Current Visit: Yes Status: Acute (2) Dilated cardiomyopathy Current Visit: Yes Status: Chronic (3) Chest pain Current Visit: Yes Status: Acute (4) CAD (coronary artery disease) Current Visit: Yes Status: Chronic (5) Stented coronary artery Current Visit: Yes Status: Chronic (6) Hypertension Current Visit: Yes Status: Chronic Qualifiers: Hypertension type: essential hypertension Qualified Code(s): I10 - Essential (primary) hypertension (7) Hyperlipemia, mixed Current Visit: Yes Status: Chronic (8) Former tobacco use Current Visit: Yes Status: Chronic (9) Mitral regurgitation Current Visit: Yes Status: Chronic
[2020-02-19] MEDS ORDERED: SODIUM CHLORIDE 0.9% 500 ML 500 ML IV SCH (14:00)
[2020-02-19] MEDS: LOSARTAN 25 MG TAB PO SCH (19:10)
[2020-02-19] MEDS: ENOXAPARIN 40 MG/0.4 ML INJ SUB-Q SCH (21:57)
[2020-02-20 06:19] LABS: INR 0.98 (0.87-1.13)
[2020-02-20 06:23] LABS: BUN/Creatinine Ratio 15; Blood Urea Nitrogen 12 mg/dL (7-17); Calcium 9.2 mg/dL (8.4-10.2); Hemolysis Index 3
[2020-02-20] MEDS ORDERED: LOSARTAN POTASSIUM 25 MG PO SCH (10:00)
[2020-02-20] MEDS: CLOPIDOGREL 75 MG TAB PO SCH (10:09)
[2020-02-20] MEDS: ASPIRIN 81 MG TAB CHEW PO SCH (10:09)
[2020-02-20] MEDS: carvediloL 6.25 MG TAB PO SCH ×2 (10:09→21:44)
--- NOTE | 2020-02-20 10:09 | Progress Note ---
Assessment and Plan clinically improving HFrEF cont current meds unable to uptitrate bb or arb due to soft bp check ble art u/s in am change iv lasix to po likely cath on saturday discussed w/ pt at length - Patient Problems (1) Acute on chronic HFrEF (heart failure with reduced ejection fraction) Current Visit: Yes Status: Acute (2) Cardiomyopathy Current Visit: Yes Status: Acute (3) Chest pain Current Visit: Yes Status: Acute (4) Chest pain at rest Current Visit: Yes Status: Acute (5) CAD (coronary artery disease) Current Visit: Yes Status: Chronic (6) Dilated cardiomyopathy Current Visit: Yes Status: Chronic (7) Former tobacco use Current Visit: Yes Status: Chronic (8) Hyperlipemia, mixed Current Visit: Yes Status: Chronic (9) Hypertension Current Visit: Yes Status: Chronic Qualifiers: Hypertension type: essential hypertension Qualified Code(s): I10 - Ess ential (primary) hypertension (10) Mitral regurgitation Current Visit: Yes Status: Chronic (11) Stented coronary artery Current Visit: Yes Status: Chronic (12) ACS (acute coronary syndrome) Current Visit: No Status: Acute (13) Smoker Current Visit: No Status: Chronic Subjective Date of service: 02/20/20 Interval history: sob mildly improved no cp Objective Vital Signs Temp Pulse Resp BP BP Pulse Ox 02/20/20 08:01 96 02/20/20 07:25 98.0 F 82 20 99/66 96 02/20/20 04:39 98.4 F 82 18 87/47 95 02/19/20 21:57 78 116/77 02/19/20 20:00 78 18 02/19/20 19:10 85 107/78 02/19/20 15:36 97.6 F 85 15 107/78 100 02/19/20 11:26 97.8 F 87 16 113/74 98 - Physical Examination HEENT: Positive: PERRL, Normocephaly, Mucus Membranes Moist Neck: Positive: neck supple, trachea midline Neuro: Positive: Grossly Intact Abdomen: Negative: Tender Skin: Negative: Rash Musculoskeletal: No Pain Extremities: Present: edema (trace BLE) - Labs and Meds Coagulation 02/20/20 Range/Units 04:55 PT 12.8 (12.2-14.9) Sec. INR 0.98 (0.87-1.13) Comprehensive Metabolic Panel 02/20/20 Range/Units 04:55 Sodium 144 (137-145) mmol/L Potassium 3.8 (3.6-5.0) mmol/L Chloride 102.2 (98-107) mmol/L Carbon Dioxide 27 (22-30) mmol/L BUN 12 (7-17) mg/dL Creatinine 0.8 (0.7-1.2) mg/dL Glucose 97 (65-100) mg/dL Calcium 9.2 (8.4-10.2) mg/dL - Imaging and Cardiology EKG: report reviewed, image reviewed Echo: report reviewed (04/2017 showed EF 25-30%, grade 3 diastolic dysfunction. ) Cardiac cath: report reviewed (LHC done 03/2017 for AMI with PCI to mid LAD with JACK, EF 30-35%.LHC done 09/2017 showed minimal CAD (mid LAD to distal LAD lesion 10% stenosed) with patent distal LAD stent, EF 20-34%. ) - EKG Sinus rhythms and dysrhythmias: sinus rhythm Myocardial infarction: anterior [place] (old age or i
[2020-02-20] MEDS: LOSARTAN 25 MG TAB PO SCH (10:10)
[2020-02-20] MEDS: FUROSEMIDE 40 MG/4 ML INJ IV SCH (10:10)
--- NOTE | 2020-02-20 19:01 | Progress Note ---
Assessment and Plan Assessment and plan: --Chest pain; evaluate for acute coronary syndrome 3 sets of cardiac enzymes negative Echo; ejection fraction 10 to 15% Cardiology recommend further ischemia work-up Medications optimized --h/o CAD status post PCI; Patient has been noncompliant with medications Resume home cardiac meds, Aspirin Plavix beta blockers STEVENSON inhibitors nitrates Heart cath next week 02/23/2020 per cardiology Lower extremity arterial Doppler --Dyslipidemia; continue statin, Low-cholesterol diet --Acute on chronic systolic congestive heart failure; EF 10 to 15% Low-sodium diet, fluid restriction Anti-failure medications, input output monitoring Patient needs LifeVest, ultimately defibrillator Cardiology planning left heart catheterization 02/23/2020 Meanwhile medications will be optimized --DVT prophylaxis; Lovenox --Full CODE STATUS --Ongoing tobacco use; advised smoking cessation Nicotine patch as needed We will closely monitor the patient and adjust the management as needed Plan of care reviewed with the patient and her nurse History Interval history: Patient seen at the bedside this morning Patient feels better, shortness of breath significantly improved Denies chest pain Vital signs noted Hospitalist Physical - Constitutional Vitals: Temp Pulse Resp BP Pulse Ox 97.8 F 79 18 108/68 96 02/20/20 16:35 02/20/20 16:35 02/20/20 16:35 02/20/20 16:35 02/20/20 16:35 General appearance: Present: no acute distress, well-nourished, obese - EENT Eyes: Present: PERRL, EOM intact - Neck Neck: Present: supple, normal ROM - Respiratory Respiratory effort: normal Respiratory: bilateral: diminished, negative: rales, rhonchi, wheezing - Cardiovascular Rhythm: regular Heart Sounds: Present: S1 & S2 - Extremities Extremities: no ischemia, No edema - Abdominal General gastrointestinal: soft, non-tender, non-distended, normal bowel sounds - Integumentary Integumentary: Present: clear, warm - Psychiatric Psychiatric: appropriate mood/affect, cooperative - Neurologic Neurologic: CNII-XII intact, moves all extremities HEART Score - HEART Score Troponin: Troponin T < 0.010 ng/mL (0.00-0.029) 02/19/20 04:03 Results - Labs CBC & Chem 7: 02/18/20 10:30 02/20/20 04:55 Labs: Laboratory Last Values WBC 7.4 K/mm3 (4.5-11.0) 02/18/20 10:30 RBC 4.74 M/mm3 (3.65-5.03) 02/18/20 10:30 Hgb 13.3 gm/dl (10.1-14.3) 02/18/20 10:30 Hct 40.6 % (30.3-42.9) 02/18/20 10:30 MCV 86 fl (79-97) 02/18/20 10:30 MCH 28 pg (28-32) 02/18/20 10:30 MCHC 33 % (30-34) 02/18/20 10:30 RDW 14.8 % (13.2-15.2) 02/18/20 10:30 Plt Count 260 K/mm3 (140-440) 02/18/20 10:30 Lymph % (Auto) 37.2 % (13.4-35.0) H 02/18/20 10:30 [place] % (Auto) 5.3 % (0.0-7.3) 02/18/20 10:30 Eos % (Auto) 1.3 % (0.0-4.3) 02/18/20 10:30 Baso % (Auto) 1.4 % (0.0-1.8) 02/18/20 10:30 Lymph # 2.7 K/mm3 (1.2-5.4) 02/18/20 10:30 [place] # 0.4 K/mm3 (0.0-0.8) 02/18/20 10:30 Eos # 0.1 K/mm3 (0.0-0.4) 02/18/20 10:30 Baso # 0.1 K/mm3 (0.0-0.1) 02/18/20 10:30 Seg Neutrophils % 54.8 % (40.0-70.0) 02/18/20 10:30 Seg Neutrophils # 4.0 K/mm3 (1.8-7.7) 02/18/20 10:30 PT 12.8 Sec. (12.2-14.9) 02/20/20 04:55 INR 0.98 (0.87-1.13) 02/20/20 04:55 APTT 23.0 Sec. (24.2-36.6) L 02/18/20 10:30 Sodium 144 mmol/L (137-145) 02/20/20 04:55 Potassium 3.8 mmol/L (3.6-5.0) 02/20/20 04:55 Chloride 102.2 mmol/L (98-107) 02/20/20 04:55 Carbon Dioxide 27 mmol/L (22-30) 02/20/20 04:55 Anion Gap 19 mmol/L 02/20/20 04:55 BUN 12 mg/dL (7-17) 02/20/20 04:55 Creatinine 0.8 mg/dL (0.7-1.2) 02/20/20 04:55 Estimated GFR > 60 ml/min 02/20/20 04:55 BUN/Creatinine Ratio 15 % 02/20/20 04:55 Glucose 97 mg/dL (65-100) 02/20/20 04:55 Calcium 9.2 mg/dL (8.4-10.2) 02/20/20 04:55 Total Creatine Kinase 62 units/L (30-135) 02/19/20 04:03 CK-MB (CK-2) 1.0 ng/mL (0.0-4.0) 02/19/20 04:03 CK-MB (CK-2) Rel Index 1.6 (0-4) 02/19/20 04:03 Troponin T < 0.010 ng/mL (0.00-0.029) 02/19/20 04:03 NT-Pro-B Natriuret Pep 1527 pg/mL (0-900) H 02/18/20 10:42 Triglycerides 157 mg/dL (2-149) H 02/19/20 04:03 Cholesterol 177 mg/dL (50-199) 02/19/20 04:03 LDL Cholesterol Direct 118 mg/dL (50-130) 02/19/20 04:03 HDL Cholesterol 40 mg/dL (40-59) 02/19/20 04:03 Cholesterol/HDL Ratio 4.42 % 02/19/20 04:03 HCG, Qual Negative (Negative) 02/18/20 10:30 - Diagnostic Impressions Diagnostic Impressions: Echocardiogram 02/18/20 16:19 Transthoracic Echocardiogram Indication: Chest pain BP: 92/56 HR: 83 Conclusions *The left ventricular chamber size is severely dilated. *Severe global hypokinesis of the left ventricle is observed. *Global left ventricular systolic function is severely decreased. *The estimated ejection fraction is 10-15%. *The left ventricular diastolic filling pattern is restrictive. *There is moderate mitral regurgitation. *There is no pericardial effusion. Findings Left Ventricle: The left ventricular chamber size is severely dilated. Severe global hypokinesis of the left ventricle is observed. Global left ventricular systolic function is severely decreased. The estimated ejection fraction is 10-15%. The left ventricular diastolic filling pattern is restrictive. Left Atrium: The left atrial chamber size is normal. Right Ventricle: The right ventricular cavity size is normal. The right ventricular global systolic function is mildly reduced. Right Atrium: The right atrial cavity size is normal. Aortic Valve: The aortic valve leaflets are mildly thickened. There is no evidence of aortic regurgitation. Mitral Valve: The mitral valve leaflets are mildly thickened. There is moderate mitral regurgitation. Tricuspid Valve: The tricuspid valve leaflets are normal. Pulmonic Valve: The pulmonic valve appears normal. There is trace pulmonic regurgitation. Pericardium: There is no pericardial effusion. Aorta: The aorta appears normal. Venous: The inferior vena cava appears normal. Contrast: Intravenous contrast was used to enhance endocardial border definition. Measurements Chambers 2D Name Value Normal Range IVSd (2D) 0.99 cm (0.6 - 1.1) LVPWd (2D) 0.95 cm (0.6 - 1.1) LVIDd (2D) 6.29 cm (3.7 - 5.6) LVIDs (2D) 5.77 cm (2 - 3.8) LV FS (2D) 8.35 % - EF Teichholz (2D) 18.06 % - Ao root diameter (2D) 2.78 cm (2 - 3.7) Volumes/Mass Name Value Normal Range LA ESV SP 4CH (A/L) 66.83 ml - LA ESV SP 2CH (A/L) 42.9 ml - LA ESV BP (A/L) 57.46 ml - LA ESV BP (A/L) index 29.62 ml/m2 - LA ESV SP 4CH (MOD) 60.51 ml - LA ESV SP 2CH (MOD) 41.62 ml - LA ESV BP (MOD) 53.72 ml - LA ESV BP (MOD) index 27.69 ml/m2 - Diastolic/Systolic Function Name Value Normal Range MV E-wave Vmax 0.79 m/sec - MV deceleration time 130.96 msec - MV A-wave Vmax 0.34 m/sec - MV E:A ratio 2.31 ratio - Aortic Valve Name Value Normal Range AV Vmax 0.93 m/sec - AV VTI 15.15 cm - AV peak gradient 3.49 mmHg - AV mean gradient 2.21 mmHg - LVOT diameter 2.08 cm - LVOT Vmax 0.73 m/sec - LVOT VTI 10.71 cm - LVOT peak gradient 2.13 mmHg - LVOT mean gradient 1.05 mmHg - SV LVOT 36.35 ml - BIPIN (continuity Vmax) 2.65 cm2 - BIPIN (continuity VTI) 2.4 cm2 - Mitral Valve Name Value Normal Range MR Vmax 4.15 m/sec - MR VTI 128.73 cm - MR volume (PISA) 28.23 ml - MR flow (PISA) 89.43 ml/sec - MR ERO 0.21 cm2 - MR PISA radius 0.68 cm - MR alias Vmax 30.71 cm/sec - Pulmonic Valve/Qp:Qs Name Value Normal Range PV Vmax 0.55 m/sec - PV peak gradient 1.2 mmHg - UT end-diastolic Vmax 1.48 m/sec - PV acceleration time 137.01 msec - [place]/IV: Voiding Method Toilet IV Catheter Type [Left Hand] Peripheral IV Active Medications - Current Medications Current Medications: Generic Name Dose Route Start Last Admin Trade Name Yvonne PRN Reason Stop Dose Admin Aspirin 81 mg 02/19/20 10:00 02/20/20 10:09 Baby Aspirin PO 81 mg QDAY YEVGENIY Administration Atorvastatin Calcium 80 mg 02/18/20 22:00 02/19/20 21:56 Lipitor PO 80 mg QHS YEVGENIY Administration Carvedilol 6.25 mg 02/18/20 22:00 02/20/20 10:09 Coreg PO 6.25 mg BID YEVGENIY Administration Clopidogrel Bisulfate 75 mg 02/19/20 10:00 02/20/20 10:09 Plavix PO 75 mg QDAY YEVGENIY Administration Enoxaparin Sodium 40 mg 02/18/20 22:00 02/19/20 21:57 Enoxaparin SUB-Q 40 mg QDAY@2200 YEVGENIY Administration Furosemide 40 mg 02/19/20 10:00 02/20/20 10:10 Lasix IV 40 mg QDAY YEVGENIY Administration Losartan Potassium 25 mg 02/19/20 14:00 02/20/20 10:10 Cozaar PO Not Given QDAY YEVGENIY Nitroglycerin 0.4 mg 02/18/20 16:09 Nitrostat SL .Q5MIN PRN Chest Pain Nutrition/Malnutrition Assess - Dietary Evaluation Nutrition/Malnutrition Findings: Nutrition Notes Start: 02/19/20 09:03 Freq: Status: Active Protocol: Document 02/19/20 09:03 LP (Rec: 02/19/20 09:03 LP [id number]) Nutrition Notes Need for 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 Nutrition Intervention Revisit per MD consult or patient Sign Off request:
[2020-02-20] MEDS: ENOXAPARIN 40 MG/0.4 ML INJ SUB-Q SCH (21:45)
--- NOTE | 2020-02-21 10:17 | Progress Note ---
Assessment and Plan clinically improving HFrEF cont current meds - will change lasix to po unable to uptitrate bb or arb due to soft bp ble art u/s pending likely cath on saturday discussed w/ pt at length - Patient Problems (1) Acute on chronic HFrEF (heart failure with reduced ejection fraction) Current Visit: Yes Status: Acute (2) Cardiomyopathy Current Visit: Yes Status: Acute (3) Chest pain Current Visit: Yes Status: Acute (4) Chest pain at rest Current Visit: Yes Status: Acute (5) CAD (coronary artery disease) Current Visit: Yes Status: Chronic (6) Dilated cardiomyopathy Current Visit: Yes Status: Chronic (7) Former tobacco use Current Visit: Yes Status: Chronic (8) Hyperlipemia, mixed Current Visit: Yes Status: Chronic (9) Hypertension Current Visit: Yes Status: Chronic Qualifiers: Hypertension type: essential hypertension Qualified Code(s): I10 - Es sential (primary) hypertension (10) Mitral regurgitation Current Visit: Yes Status: Chronic (11) Stented coronary artery Current Visit: Yes Status: Chronic (12) ACS (acute coronary syndrome) Current Visit: No Status: Acute (13) Smoker Current Visit: No Status: Chronic Subjective Interval history: sob mildly improved no cp Objective Vital Signs Temp Pulse Resp BP Pulse Ox 02/21/20 09:48 96 02/21/20 09:44 93 H 02/21/20 08:15 98.3 F 83 18 107/70 98 02/21/20 03:36 98.5 F 83 18 107/76 99 02/20/20 23:42 97.6 F 79 18 95/62 95 02/20/20 21:44 83 116/72 02/20/20 20:00 18 02/20/20 19:20 97.8 F 83 18 116/72 98 02/20/20 16:35 97.8 F 79 18 108/68 96 02/20/20 12:19 98.1 F 89 20 101/70 99 02/20/20 12:00 89 - Physical Examination HEENT: Positive: PERRL, Normocephaly, Mucus Membranes Moist Neck: Positive: neck supple, trachea midline Neuro: Positive: Grossly Intact Abdomen: Negative: Tender Skin: Negative: Rash Musculoskeletal: No Pain Extremities: Present: edema (trace BLE) - Imaging and Cardiology EKG: report reviewed, image reviewed Echo: report reviewed (04/2017 showed EF 25-30%, grade 3 diastolic dysfunction. ) Cardiac cath: report reviewed (LHC done 03/2017 for AMI with PCI to mid LAD with JACK, EF 30-35%.LHC done 09/2017 showed minimal CAD (mid LAD to distal LAD lesion 10% stenosed) with patent distal LAD stent, EF 20-34%. ) - EKG Sinus rhythms and dysrhythmias: sinus rhythm Myocardial infarction: anterior [place] (old age or i
[2020-02-21] MEDS: LOSARTAN 25 MG TAB PO SCH (12:08)
[2020-02-21] MEDS: ASPIRIN 81 MG TAB CHEW PO SCH (12:08)
[2020-02-21] MEDS: CLOPIDOGREL 75 MG TAB PO SCH (12:08)
[2020-02-21] MEDS: carvediloL 6.25 MG TAB PO SCH ×2 (12:08→22:54)
[2020-02-21] MEDS: FUROSEMIDE 40 MG TAB PO SCH (12:08)
[2020-02-21 18:40] LABS: BUN/Creatinine Ratio 16; Blood Urea Nitrogen 16 mg/dL (7-17); Calcium 9.4 mg/dL (8.4-10.2); Hemolysis Index 16
--- NOTE | 2020-02-21 18:54 | Progress Note ---
Assessment and Plan Assessment and plan: 02/20; patient feels better Heart catheterization on 02/23/2020 Follow lower extremity arterial Doppler --Acute on chronic systolic congestive heart failure; EF 10 to 15% Low-sodium diet, fluid restriction Anti-failure medications, input output monitoring Patient needs LifeVest, ultimately defibrillator Cardiology planning left heart catheterization 02/23/2020 Patient symptoms significantly improved since admission --Chest pain; 3 sets of cardiac enzymes negative Ischemia work-up/heart cath on Saturday Medications optimized --h/o CAD status post PCI; Continue current cardiac medications Aspirin Plavix beta blockers STEVENSON inhibitors nitrates Heart cath next week 02/23/2020 per cardiology --? Peripheral vascular disease ; leg pain, lower extremity arterial Doppler ordered --Dyslipidemia; continue statin, Low-cholesterol diet --Obesity; BMI 33.7, patient advised weight reduction When medically stable --DVT prophylaxis; Lovenox --Full CODE STATUS --Ongoing tobacco use; advised smoking cessation Nicotine patch as needed We will closely monitor the patient and adjust the management as needed Plan of care reviewed with the patient and her nurse Brief history: Very pleasant obese 59-year-old female patient with significant past medical history of coronary artery disease status post PCI, congestive heart failure Dyslipidemia, noncompliant with medications due to social issues, was admitted through emergency room with worsening shortness of breath and chest pain 3 pillow orthopnea, evaluated by part time, medications optimized, echo dilated cardiomyopathy EF of 10 to 15%, planning ischemia work-up with heart cath on 02/23/2020, patient symptoms significantly improved History Interval history: Patient seen and examined at the bedside Patient's medications and chart reviewed Patient feels slightly better denies any chest pain or shortness of breath Vital signs noted Hospitalist Physical - Constitutional Vitals: Temp Pulse Resp BP Pulse Ox 98.3 F 93 H 18 115/79 96 02/21/20 08:15 02/21/20 09:44 02/21/20 08:15 02/21/20 12:08 02/21/20 09:48 General appearance: Present: no acute distress, well-nourished, obese - EENT Eyes: Present: PERRL, EOM intact - Neck Neck: Present: supple, normal ROM - Respiratory Respiratory effort: normal Respiratory: bilateral: diminished, rales, negative: rhonchi, wheezing - Cardiovascular Rhythm: regular Heart Sounds: Present: S1 & S2 - Extremities Extremities: no ischemia, No edema - Abdominal General gastrointestinal: soft, non-tender, non-distended, normal bowel sounds - Integumentary Integumentary: Present: clear, warm - Psychiatric Psychiatric: appropriate mood/affect, cooperative - Neurologic Neurologic: CNII-XII intact, moves all extremities HEART Score - HEART Score Troponin: Troponin T < 0.010 ng/mL (0.00-0.029) 02/19/20 04:03 Results - Labs CBC & Chem 7: 02/18/20 10:30 02/21/20 17:58 Labs: Laboratory Last Values WBC 7.4 K/mm3 (4.5-11.0) 02/18/20 10:30 RBC 4.74 M/mm3 (3.65-5.03) 02/18/20 10:30 Hgb 13.3 gm/dl (10.1-14.3) 02/18/20 10:30 Hct 40.6 % (30.3-42.9) 02/18/20 10:30 MCV 86 fl (79-97) 02/18/20 10:30 MCH 28 pg (28-32) 02/18/20 10:30 MCHC 33 % (30-34) 02/18/20 10:30 RDW 14.8 % (13.2-15.2) 02/18/20 10:30 Plt Count 260 K/mm3 (140-440) 02/18/20 10:30 Lymph % (Auto) 37.2 % (13.4-35.0) H 02/18/20 10:30 [place] % (Auto) 5.3 % (0.0-7.3) 02/18/20 10:30 Eos % (Auto) 1.3 % (0.0-4.3) 02/18/20 10:30 Baso % (Auto) 1.4 % (0.0-1.8) 02/18/20 10:30 Lymph # 2.7 K/mm3 (1.2-5.4) 02/18/20 10:30 [place] # 0.4 K/mm3 (0.0-0.8) 02/18/20 10:30 Eos # 0.1 K/mm3 (0.0-0.4) 02/18/20 10:30 Baso # 0.1 K/mm3 (0.0-0.1) 02/18/20 10:30 Seg Neutrophils % 54.8 % (40.0-70.0) 02/18/20 10:30 Seg Neutrophils # 4.0 K/mm3 (1.8-7.7) 02/18/20 10:30 PT 12.8 Sec. (12.2-14.9) 02/20/20 04:55 INR 0.98 (0.87-1.13) 02/20/20 04:55 APTT 23.0 Sec. (24.2-36.6) L 02/18/20 10:30 Sodium 139 mmol/L (137-145) 02/21/20 17:58 Potassium 4.1 mmol/L (3.6-5.0) 02/21/20 17:58 Chloride 99.7 mmol/L (98-107) 02/21/20 17:58 Carbon Dioxide 27 mmol/L (22-30) 02/21/20 17:58 Anion Gap 16 mmol/L 02/21/20 17:58 BUN 16 mg/dL (7-17) 02/21/20 17:58 Creatinine 1.0 mg/dL (0.7-1.2) 02/21/20 17:58 Estimated GFR > 60 ml/min 02/21/20 17:58 BUN/Creatinine Ratio 16 % 02/21/20 17:58 Glucose 125 mg/dL (65-100) H 02/21/20 17:58 Calcium 9.4 mg/dL (8.4-10.2) 02/21/20 17:58 Magnesium 2.10 mg/dL (1.7-2.3) 02/21/20 17:58 Total Creatine Kinase 62 units/L (30-135) 02/19/20 04:03 CK-MB (CK-2) 1.0 ng/mL (0.0-4.0) 02/19/20 04:03 CK-MB (CK-2) Rel Index 1.6 (0-4) 02/19/20 04:03 Troponin T < 0.010 ng/mL (0.00-0.029) 02/19/20 04:03 NT-Pro-B Natriuret Pep 1527 pg/mL (0-900) H 02/18/20 10:42 Triglycerides 157 mg/dL (2-149) H 02/19/20 04:03 Cholesterol 177 mg/dL (50-199) 02/19/20 04:03 LDL Cholesterol Direct 118 mg/dL (50-130) 02/19/20 04:03 HDL Cholesterol 40 mg/dL (40-59) 02/19/20 04:03 Cholesterol/HDL Ratio 4.42 % 02/19/20 04:03 HCG, Qual Negative (Negative) 02/18/20 10:30 - Diagnostic Impressions Diagnostic Impressions: Echocardiogram 02/18/20 16:19 Transthoracic Echocardiogram Indication: Chest pain BP: 92/56 HR: 83 Conclusions *The left ventricular chamber size is severely dilated. *Severe global hypokinesis of the left ventricle is observed. *Global left ventricular systolic function is severely decreased. *The estimated ejection fraction is 10-15%. *The left ventricular diastolic filling pattern is restrictive. *There is moderate mitral regurgitation. *There is no pericardial effusion. Findings Left Ventricle: The left ventricular chamber size is severely dilated. Severe global hypokinesis of the left ventricle is observed. Global left ventricular systolic function is severely decreased. The estimated ejection fraction is 10-15%. The left ventricular diastolic filling pattern is restrictive. Left Atrium: The left atrial chamber size is normal. Right Ventricle: The right ventricular cavity size is normal. The right ventricular global systolic function is mildly reduced. Right Atrium: The right atrial cavity size is normal. Aortic Valve: The aortic valve leaflets are mildly thickened. There is no evidence of aortic regurgitation. Mitral Valve: The mitral valve leaflets are mildly thickened. There is moderate mitral regurgitation. Tricuspid Valve: The tricuspid valve leaflets are normal. Pulmonic Valve: The pulmonic valve appears normal. There is trace pulmonic regurgitation. Pericardium: There is no pericardial effusion. Aorta: The aorta appears normal. Venous: The inferior vena cava appears normal. Contrast: Intravenous contrast was used to enhance endocardial border definition. Measurements Chambers 2D Name Value Normal Range IVSd (2D) 0.99 cm (0.6 - 1.1) LVPWd (2D) 0.95 cm (0.6 - 1.1) LVIDd (2D) 6.29 cm (3.7 - 5.6) LVIDs (2D) 5.77 cm (2 - 3.8) LV FS (2D) 8.35 % - EF Teichholz (2D) 18.06 % - Ao root diameter (2D) 2.78 cm (2 - 3.7) Volumes/Mass Name Value Normal Range LA ESV SP 4CH (A/L) 66.83 ml - LA ESV SP 2CH (A/L) 42.9 ml - LA ESV BP (A/L) 57.46 ml - LA ESV BP (A/L) index 29.62 ml/m2 - LA ESV SP 4CH (MOD) 60.51 ml - LA ESV SP 2CH (MOD) 41.62 ml - LA ESV BP (MOD) 53.72 ml - LA ESV BP (MOD) index 27.69 ml/m2 - Diastolic/Systolic Function Name Value Normal Range MV E-wave Vmax 0.79 m/sec - MV deceleration time 130.96 msec - MV A-wave Vmax 0.34 m/sec - MV E:A ratio 2.31 ratio - Aortic Valve Name Value Normal Range AV Vmax 0.93 m/sec - AV VTI 15.15 cm - AV peak gradient 3.49 mmHg - AV mean gradient 2.21 mmHg - LVOT diameter 2.08 cm - LVOT Vmax 0.73 m/sec - LVOT VTI 10.71 cm - LVOT peak gradient 2.13 mmHg - LVOT mean gradient 1.05 mmHg - SV LVOT 36.35 ml - BIPIN (continuity Vmax) 2.65 cm2 - BIPIN (continuity VTI) 2.4 cm2 - Mitral Valve Name Value Normal Range MR Vmax 4.15 m/sec - MR VTI 128.73 cm - MR volume (PISA) 28.23 ml - MR flow (PISA) 89.43 ml/sec - MR ERO 0.21 cm2 - MR PISA radius 0.68 cm - MR alias Vmax 30.71 cm/sec - Pulmonic Valve/Qp:Qs Name Value Normal Range PV Vmax 0.55 m/sec - PV peak gradient 1.2 mmHg - SD end-diastolic Vmax 1.48 m/sec - PV acceleration time 137.01 msec - Albright/IV: Voiding Method Toilet IV Catheter Type [Left Hand] Peripheral IV Active Medications - Current Medications Current Medications: Generic Name Dose Route Start Last Admin Trade Name Freq PRN Reason Stop Dose Admin Aspirin 81 mg 02/19/20 10:00 02/21/20 12:08 Baby Aspirin PO 81 mg QDAY YEVGENIY Administration Atorvastatin Calcium 80 mg 02/18/20 22:00 02/20/20 21:44 Lipitor PO 80 mg QHS YEVGENIY Administration Carvedilol 6.25 mg 02/18/20 22:00 02/21/20 12:08 Coreg PO 6.25 mg BID YEVGENIY Administration Clopidogrel Bisulfate 75 mg 02/19/20 10:00 02/21/20 12:08 Plavix PO 75 mg QDAY YEVGENIY Administration Enoxaparin Sodium 40 mg 02/18/20 22:00 02/20/20 21:45 Enoxaparin SUB-Q 40 mg QDAY@2200 YEVGENIY Administration Furosemide 40 mg 02/21/20 11:00 02/21/20 12:08 Lasix PO 40 mg QDAY YEVGENIY Administration Losartan Potassium 25 mg 02/19/20 14:00 02/21/20 12:08 Cozaar PO 25 mg QDAY YEVGENIY Administration Nitroglycerin 0.4 mg 02/18/20 16:09 Nitrostat SL .Q5MIN PRN Chest Pain Nutrition/Malnutrition Assess - Dietary Evaluation Nutrition/Malnutrition Findings: Nutrition Notes Start: 02/19/20 09:03 Freq: Status: Active Protocol: Document 02/19/20 09:03 CHANDRA (Rec: 02/19/20 09:03 CHANDRA [id number]) Nutrition Notes Need 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 Nutrition Intervention Revisit per MD consult or patient Sign Off request:
[2020-02-21] MEDS: ENOXAPARIN 40 MG/0.4 ML INJ SUB-Q SCH (22:54)
[2020-02-22 05:31] LABS: Hematocrit 39.5 % (30.3-42.9); Hemoglobin 12.9 gm/dl (10.1-14.3); Mean Corpuscular HGB Conc 33 % (30-34); Mean Corpuscular Volume 87 fl (79-97); Platelet Count 250 K/mm3 (140-440); Red Blood Count 4.57 M/mm3 (3.65-5.03); Red Cell Distribution Width 14.8 % (13.2-15.2)
[2020-02-22 05:51] LABS: BUN/Creatinine Ratio 18; Blood Urea Nitrogen 16 mg/dL (7-17); Calcium 9.1 mg/dL (8.4-10.2); Hemolysis Index 14
[2020-02-22] MEDS: FUROSEMIDE 40 MG/4 ML INJ IV SCH (07:50)
[2020-02-22] MEDS: CLOPIDOGREL 75 MG TAB PO SCH (09:43)
[2020-02-22] MEDS: carvediloL 6.25 MG TAB PO SCH ×2 (09:43→22:03)
[2020-02-22] MEDS: FUROSEMIDE 40 MG TAB PO SCH (09:43)
[2020-02-22] MEDS: ASPIRIN 81 MG TAB CHEW PO SCH (09:43)
[2020-02-22] MEDS: LOSARTAN 25 MG TAB PO SCH (09:43)
--- NOTE | 2020-02-22 11:46 | Progress Note ---
Assessment and Plan clinically improving HFrEF cont current meds - will change lasix to po unable to uptitrate bb or arb due to soft bp ble art u/s pending nsvt (5-7 beats) - would reconsider lifevest prior to dc cath in am (risks/benefits/alternatives d/w pt - she'd like to proceed) - Patient Problems (1) Acute on chronic HFrEF (heart failure with reduced ejection fraction) Current Visit: Yes Status: Acute (2) Cardiomyopathy Current Visit: Yes Status: Acute (3) Chest pain Current Visit: Yes Status: Acute (4) Chest pain at rest Current Visit: Yes Status: Acute (5) CAD (coronary artery disease) Current Visit: Yes Status: Chronic (6) Dilated cardiomyopathy Current Visit: Yes Status: Chronic (7) Former tobacco use Current Visit: Yes Status: Chronic (8) Hyperlipemia, mixed Current Visit: Yes Status: Chronic (9) Hypertension Current Visit: Yes Status: Chronic Qualifiers: Hypertension type: essential hypertension Qualified Code(s): I10 - Essential (primary) hypertension (10) Mitral regurgitation Current Visit: Yes Status: Chronic (11) Stented coronary artery Current Visit: Yes Status: Chronic (12) ACS (acute coronary syndrome) Current Visit: No Status: Acute (13) Smoker Current Visit: No Status: Chronic Subjective Date of service: 02/22/20 Interval history: sob mildly improved no cp Objective Vital Signs Temp Pulse Pulse Pulse Pulse Resp BP 02/22/20 10:00 77 02/22/20 08:05 97.5 F L 84 16 108/71 02/22/20 05:06 97.7 F 71 20 104/68 02/22/20 04:00 74 02/21/20 23:23 97.8 F 74 20 112/65 02/21/20 22:54 88 101/65 02/21/20 21:00 88 81 81 18 02/21/20 20:19 97.8 F 81 20 101/65 02/21/20 20:00 88 02/21/20 16:13 97.7 F 90 18 104/74 02/21/20 12:08 115/79 Pulse Ox 02/22/20 10:00 02/22/20 08:05 99 02/22/20 05:06 99 02/22/20 04:00 02/21/20 23:23 98 02/21/20 22:54 02/21/20 21:00 98 02/21/20 20:19 98 02/21/20 20:00 02/21/20 16:13 99 02/21/20 12:08 - Physical Examination HEENT: Positive: PERRL, Normocephaly, Mucus Membranes Moist Neck: Positive: neck supple, trachea midline Neuro: Positive: Grossly Intact Abdomen: Negative: Tender Skin: Negative: Rash Musculoskeletal: No Pain Extremities: Present: edema (trace BLE) - Labs and Meds CBC 02/22/20 Range/Units 05:13 WBC 6.3 (4.5-11.0) K/mm3 RBC 4.57 (3.65-5.03) M/mm3 Hgb 12.9 (10.1-14.3) gm/dl Hct 39.5 (30.3-42.9) % Plt Count 250 (140-440) K/mm3 Comprehensive Metabolic Panel 02/21/20 02/22/20 Range/Units 17:58 05:13 Sodium 139 142 (137-145) mmol/L Potassium 4.1 4.1 (3.6-5.0) mmol/L Chloride 99.7 104.5 (98-107) mmol/L Carbon Dioxide 27 27 (22-30) mmol/L BUN 16 16 (7-17) mg/dL Creatinine 1.0 0.9 (0.7-1.2) mg/dL Glucose 125 H 94 (65-100) mg/dL Calcium 9.4 9.1 (8.4-10.2) mg/dL - Imaging and Cardiology EKG: report reviewed, image reviewed Echo: report reviewed (04/2017 showed EF 25-30%, grade 3 diastolic dysfunction. ) Cardiac cath: report reviewed (LHC done 03/2017 for AMI with PCI to mid LAD with JACK, EF 30-35%.LHC done 09/2017 showed minimal CAD (mid LAD to distal LAD lesion 10% stenosed) with patent distal LAD stent, EF 20-34%. ) - EKG Sinus rhythms and dysrhythmias: sinus rhythm Myocardial infarction: anterior [place] (old age or i
--- NOTE | 2020-02-22 18:33 | Progress Note ---
Assessment and Plan Assessment and plan: 02/21: Heart cath tomorrow LifeVest prior to discharge 02/20; patient feels better Heart catheterization on 02/23/2020 Follow lower extremity arterial Doppler --Acute on chronic systolic congestive heart failure; EF 10 to 15% Low-sodium diet, fluid restriction Anti-failure medications, input output monitoring Patient needs LifeVest, ultimately defibrillator Heart cath tomorrow --Chest pain; resolved 3 sets of cardiac enzymes negative Ischemia work-up/heart cath on Saturday Medications optimized --h/o CAD status post PCI; Continue current cardiac medications Aspirin Plavix beta blockers STEVENSON inhibitors nitrates Heart cath next week 02/23/2020 per cardiology --? Peripheral vascular disease ; leg pain, lower extremity arterial Doppler ordered --Dyslipidemia; continue statin, Low-cholesterol diet --Obesity; BMI 33.7, patient advised weight reduction When medically stable --DVT prophylaxis; Lovenox --Full CODE STATUS --Ongoing tobacco use; advised smoking cessation Nicotine patch as needed We will closely monitor the patient and adjust the management as needed Plan of care reviewed with the patient and her nurse Disposition; follow heart cath, LifeVest at discharge when cleared by cardiology Brief history: Very pleasant obese 59-year-old female patient with significant past medical history of coronary artery disease status post PCI, congestive heart failure Dyslipidemia, noncompliant with medications due to social issues, was admitted through emergency room with worsening shortness of breath and chest pain 3 pillow orthopnea, evaluated by web communications specialist, medications optimized, echo dilated cardiomyopathy EF of 10 to 15%, planning ischemia work-up with heart cath on 02/23/2020, patient symptoms significantly improved History Interval history: Patient seen and examined at the bedside Patient's chart and medications reviewed Patient feels a whole lot better Denies chest pain or shortness of breath Scheduled for heart cath tomorrow Vital signs reviewed Hospitalist Physical - Constitutional Vitals: Temp Pulse Resp BP Pulse Ox 98.5 F 79 20 109/69 98 02/22/20 15:05 02/22/20 15:05 02/22/20 15:05 02/22/20 15:05 02/22/20 15:05 General appearance: Present: no acute distress, well-nourished, obese - EENT Eyes: Present: PERRL, EOM intact - Neck Neck: Present: supple, normal ROM - Respiratory Respiratory effort: normal Respiratory: bilateral: diminished, negative: rales, rhonchi, wheezing - Cardiovascular Rhythm: regular Heart Sounds: Present: S1 & S2 - Extremities Extremities: no ischemia, No edema - Abdominal General gastrointestinal: soft, non-tender, non-distended, normal bowel sounds - Integumentary Integumentary: Present: clear, warm - Psychiatric Psychiatric: appropriate mood/affect, cooperative - Neurologic Neurologic: CNII-XII intact, moves all extremities HEART Score - HEART Score Troponin: Troponin T < 0.010 ng/mL (0.00-0.029) 02/19/20 04:03 Results - Labs CBC & Chem 7: 02/22/20 05:13 02/22/20 05:13 Labs: Laboratory Last Values WBC 6.3 K/mm3 (4.5-11.0) 02/22/20 05:13 RBC 4.57 M/mm3 (3.65-5.03) 02/22/20 05:13 Hgb 12.9 gm/dl (10.1-14.3) 02/22/20 05:13 Hct 39.5 % (30.3-42.9) 02/22/20 05:13 MCV 87 fl (79-97) 02/22/20 05:13 MCH 28 pg (28-32) 02/22/20 05:13 MCHC 33 % (30-34) 02/22/20 05:13 RDW 14.8 % (13.2-15.2) 02/22/20 05:13 Plt Count 250 K/mm3 (140-440) 02/22/20 05:13 Lymph % (Auto) 37.2 % (13.4-35.0) H 02/18/20 10:30 [place] % (Auto) 5.3 % (0.0-7.3) 02/18/20 10:30 Eos % (Auto) 1.3 % (0.0-4.3) 02/18/20 10:30 Baso % (Auto) 1.4 % (0.0-1.8) 02/18/20 10:30 Lymph # 2.7 K/mm3 (1.2-5.4) 02/18/20 10:30 [place] # 0.4 K/mm3 (0.0-0.8) 02/18/20 10:30 Eos # 0.1 K/mm3 (0.0-0.4) 02/18/20 10:30 Baso # 0.1 K/mm3 (0.0-0.1) 02/18/20 10:30 Seg Neutrophils % 54.8 % (40.0-70.0) 02/18/20 10:30 Seg Neutrophils # 4.0 K/mm3 (1.8-7.7) 02/18/20 10:30 PT 12.8 Sec. (12.2-14.9) 02/20/20 04:55 INR 0.98 (0.87-1.13) 02/20/20 04:55 APTT 23.0 Sec. (24.2-36.6) L 02/18/20 10:30 Sodium 142 mmol/L (137-145) 02/22/20 05:13 Potassium 4.1 mmol/L (3.6-5.0) 02/22/20 05:13 Chloride 104.5 mmol/L (98-107) 02/22/20 05:13 Carbon Dioxide 27 mmol/L (22-30) 02/22/20 05:13 Anion Gap 15 mmol/L 02/22/20 05:13 BUN 16 mg/dL (7-17) 02/22/20 05:13 Creatinine 0.9 mg/dL (0.7-1.2) 02/22/20 05:13 Estimated GFR > 60 ml/min 02/22/20 05:13 BUN/Creatinine Ratio 18 % 02/22/20 05:13 Glucose 94 mg/dL (65-100) 02/22/20 05:13 Calcium 9.1 mg/dL (8.4-10.2) 02/22/20 05:13 Magnesium 2.10 mg/dL (1.7-2.3) 02/21/20 17:58 Total Creatine Kinase 62 units/L (30-135) 02/19/20 04:03 CK-MB (CK-2) 1.0 ng/mL (0.0-4.0) 02/19/20 04:03 CK-MB (CK-2) Rel Index 1.6 (0-4) 02/19/20 04:03 Troponin T < 0.010 ng/mL (0.00-0.029) 02/19/20 04:03 NT-Pro-B Natriuret Pep 1527 pg/mL (0-900) H 02/18/20 10:42 Triglycerides 157 mg/dL (2-149) H 02/19/20 04:03 Cholesterol 177 mg/dL (50-199) 02/19/20 04:03 LDL Cholesterol Direct 118 mg/dL (50-130) 02/19/20 04:03 HDL Cholesterol 40 mg/dL (40-59) 02/19/20 04:03 Cholesterol/HDL Ratio 4.42 % 02/19/20 04:03 HCG, Qual Negative (Negative) 02/18/20 10:30 - Diagnostic Impressions Diagnostic Impressions: Echocardiogram 02/18/20 16:19 Transthoracic Echocardiogram Indication: Chest pain BP: 92/56 HR: 83 Conclusions *The left ventricular chamber size is severely dilated. *Severe global hypokinesis of the left ventricle is observed. *Global left ventricular systolic function is severely decreased. *The estimated ejection fraction is 10-15%. *The left ventricular diastolic filling pattern is restrictive. *There is moderate mitral regurgitation. *There is no pericardial effusion. Findings Left Ventricle: The left ventricular chamber size is severely dilated. Severe global hypokinesis of the left ventricle is observed. Global left ventricular systolic function is severely decreased. The estimated ejection fraction is 10-15%. The left ventricular diastolic filling pattern is restrictive. Left Atrium: The left atrial chamber size is normal. Right Ventricle: The right ventricular cavity size is normal. The right ventricular global systolic function is mildly reduced. Right Atrium: The right atrial cavity size is normal. Aortic Valve: The aortic valve leaflets are mildly thickened. There is no evidence of aortic regurgitation. Mitral Valve: The mitral valve leaflets are mildly thickened. There is moderate mitral regurgitation. Tricuspid Valve: The tricuspid valve leaflets are normal. Pulmonic Valve: The pulmonic valve appears normal. There is trace pulmonic regurgitation. Pericardium: There is no pericardial effusion. Aorta: The aorta appears normal. Venous: The inferior vena cava appears normal. Contrast: Intravenous contrast was used to enhance endocardial border definition. Measurements Chambers 2D Name Value Normal Range IVSd (2D) 0.99 cm (0.6 - 1.1) LVPWd (2D) 0.95 cm (0.6 - 1.1) LVIDd (2D) 6.29 cm (3.7 - 5.6) LVIDs (2D) 5.77 cm (2 - 3.8) LV FS (2D) 8.35 % - EF Teichholz (2D) 18.06 % - Ao root diameter (2D) 2.78 cm (2 - 3.7) Volumes/Mass Name Value Normal Range LA ESV SP 4CH (A/L) 66.83 ml - LA ESV SP 2CH (A/L) 42.9 ml - LA ESV BP (A/L) 57.46 ml - LA ESV BP (A/L) index 29.62 ml/m2 - LA ESV SP 4CH (MOD) 60.51 ml - LA ESV SP 2CH (MOD) 41.62 ml - LA ESV BP (MOD) 53.72 ml - LA ESV BP (MOD) index 27.69 ml/m2 - Diastolic/Systolic Function Name Value Normal Range MV E-wave Vmax 0.79 m/sec - MV deceleration time 130.96 msec - MV A-wave Vmax 0.34 m/sec - MV E:A ratio 2.31 ratio - Aortic Valve Name Value Normal Range AV Vmax 0.93 m/sec - AV VTI 15.15 cm - AV peak gradient 3.49 mmHg - AV mean gradient 2.21 mmHg - LVOT diameter 2.08 cm - LVOT Vmax 0.73 m/sec - LVOT VTI 10.71 cm - LVOT peak gradient 2.13 mmHg - LVOT mean gradient 1.05 mmHg - SV LVOT 36.35 ml - BIPIN (continuity Vmax) 2.65 cm2 - BIPIN (continuity VTI) 2.4 cm2 - Mitral Valve Name Value Normal Range MR Vmax 4.15 m/sec - MR VTI 128.73 cm - MR volume (PISA) 28.23 ml - MR flow (PISA) 89.43 ml/sec - MR ERO 0.21 cm2 - MR PISA radius 0.68 cm - MR alias Vmax 30.71 cm/sec - Pulmonic Valve/Qp:Qs Name Value Normal Range PV Vmax 0.55 m/sec - PV peak gradient 1.2 mmHg - AR end-diastolic Vmax 1.48 m/sec - PV acceleration time 137.01 msec - [place]/IV: Voiding Method Toilet IV Catheter Type [Left Hand] Peripheral IV Active Medications - Current Medications Current Medications: Generic Name Dose Route Start Last Admin Trade Name Freq PRN Reason Stop Dose Admin Aspirin 81 mg 02/19/20 10:00 02/22/20 09:43 Baby Aspirin PO 81 mg QDAY YEVGENIY Administration Atorvastatin Calcium 80 mg 02/18/20 22:00 02/21/20 22:53 Lipitor PO 80 mg QHS YEVGENIY Administration Carvedilol 6.25 mg 02/18/20 22:00 02/22/20 09:43 Coreg PO 6.25 mg BID YEVGENIY Administration Clopidogrel Bisulfate 75 mg 02/19/20 10:00 02/22/20 09:43 Plavix PO 75 mg QDAY YEVGENIY Administration Enoxaparin Sodium 40 mg 02/18/20 22:00 02/21/20 22:54 Enoxaparin SUB-Q 40 mg QDAY@2200 YEVGENIY Administration Furosemide 40 mg 02/21/20 11:00 02/22/20 09:43 Lasix PO 40 mg QDAY YEVGENIY Administration Losartan Potassium 25 mg 02/19/20 14:00 02/22/20 09:43 Cozaar PO 25 mg QDAY YEVGENIY Administration Nitroglycerin 0.4 mg 02/18/20 16:09 Nitrostat SL .Q5MIN PRN Chest Pain Nutrition/Malnutrition Assess - Dietary Evaluation Nutrition/Malnutrition Findings: Nutrition Notes Start: 02/19/20 09:03 Freq: Status: Active Protocol: Document 02/19/20 09:03 CHANDRA (Rec: 02/19/20 09:03 LP [id number]) Nutrition Notes Need for Assessment generated from: marsh buggy operator Initial or Follow up Brief Note Subjective/Other Information Screen for skin risk (21) Error. Nutrition Intervention Revisit per MD consult or patient Sign Off request:
[2020-02-22] MEDS: ENOXAPARIN 40 MG/0.4 ML INJ SUB-Q SCH (22:02)
[2020-02-23 05:01] LABS: Basophils % (Auto) 0.6 % (0.0-1.8); Eosinophils # (Auto) 0.1 K/mm3 (0.0-0.4); Eosinophils % (Auto) 1.8 % (0.0-4.3); Hematocrit 38.9 % (30.3-42.9); Hemoglobin 12.6 gm/dl (10.1-14.3); Lymphocytes # (Auto) 2.7 K/mm3 (1.2-5.4); Lymphocytes % (Auto) 44.6 % (13.4-35.0); Mean Corpuscular HGB Conc 32 % (30-34); Mean Corpuscular Volume 87 fl (79-97); Monocytes # (Auto) 0.4 K/mm3 (0.0-0.8); Monocytes % (Auto) 6.9 % (0.0-7.3); Platelet Count 245 K/mm3 (140-440); Red Cell Distribution Width 14.8 % (13.2-15.2)
[2020-02-23] MEDS ORDERED: CLOPIDOGREL 75 MG TAB ONE (07:02)
[2020-02-23] MEDS ORDERED: SODIUM CHLORIDE 0.9% 500 ML 500 ML ONE (07:02)
[2020-02-23] MEDS ORDERED: ASPIRIN 81 MG TAB CHEW ONE (07:02)
[2020-02-23] MEDS: CLOPIDOGREL 75 MG TAB PO SCH ×2 (07:09→09:26)
[2020-02-23] MEDS: ASPIRIN 81 MG TAB CHEW PO SCH ×2 (07:09→09:26)
[2020-02-23] MEDS ORDERED: HEPARIN/NS 5000 UNIT/500ML 1,000 ML IR ONE (08:00)
[2020-02-23] MEDS ORDERED: LIDOCAINE (2%) 20 MG/1 ML VIAL 20 ML MDV INFILTRATI ONE (08:00)
[2020-02-23] MEDS ORDERED: fentaNYL 100 MCG/2 ML INJ ONE (08:02)
[2020-02-23] MEDS ORDERED: MIDAZOLAM 2 MG/2 ML INJ ONE (08:02)
[2020-02-23] MEDS: VERAPAMIL 5 MG/2 ML INJ ONE ×2 (08:40→08:45)
[2020-02-23] MEDS: HEPARIN 10,000 UNITS/10 ML VIAL ONE ×2 (08:40→08:45)
[2020-02-23] MEDS: NITROGLYCERIN SYRINGE 3 ML ONE ×2 (08:41→08:45)
--- NOTE | 2020-02-23 09:02 | Progress Note ---
Assessment and Plan pt s/p cath with patent lad stent non ischemic cmp, cont current meds and followup with dr baugh in one week, maybe discharged from [facility] point [facility] view - Patient Problems (1) Acute on chronic HFrEF (heart failure with reduced ejection fraction) Current Visit: Yes Status: Acute (2) Cardiomyopathy Current Visit: Yes Status: Acute Qualifiers: Cardiomyopathy type: dilated Qualified Code(s): I42.0 - Dilated cardiomyopathy (3) CAD (coronary artery disease) Current Visit: Yes Status: Chronic Qualifiers: Coronary Disease-Associated Artery/Lesion type: [place] artery [place] vs. transplanted heart: [place] heart Associated angina: with stable angina Qualified Code(s): I25.118 - Atherosclerotic heart disease of [place] coronary artery with other forms of angina pectoris (4) Former tobacco use Current Visit: Yes Status: Chronic (5) Hyperlipemia, mixed Current Visit: Yes Status: Chronic (6) Hypertension Current Visit: Yes Status: Chronic Qualifiers: Hypertension type: essential hypertension Qualified Code(s): I10 - Essential (primary) hypertension (7) Acute respiratory failure Current Visit: No Status: Acute Qualifiers: Respiratory failure complication: hypoxia Qualified Code(s): J96.01 - Acute respiratory failure with hypoxia Subjective Date of service: 02/23/20 Principal diagnosis: chf Interval history: pt sob is better and cp free Objective Vital Signs Temp Pulse Resp BP BP Pulse Ox 02/23/20 03:42 97.6 F 69 16 98/66 99 02/22/20 23:18 98.1 F 86 16 110/73 97 02/22/20 22:03 74 02/22/20 19:32 97.6 F 45 L 18 100/56 98 02/22/20 15:05 98.5 F 79 20 109/69 98 02/22/20 11:53 97.4 F L 89 16 116/77 99 02/22/20 10:00 77 - Physical Examination HEENT: Positive: PERRL, Normocephaly, Mucus Membranes Moist Neck: Positive: neck supple, trachea midline Cardiac: Positive: Reg Rate and Rhythm Lungs: Positive: Normal Exam Neuro: Positive: Grossly Intact Abdomen: Negative: Tender Skin: Negative: Rash Musculoskeletal: No Pain Extremities: Absent: edema (trace BLE) - Labs and Meds CBC 02/23/20 Range/Units 04:22 WBC 6.0 (4.5-11.0) K/mm3 RBC 4.50 (3.65-5.03) M/mm3 Hgb 12.6 (10.1-14.3) gm/dl Hct 38.9 (30.3-42.9) % Plt Count 245 (140-440) K/mm3 Lymph # 2.7 (1.2-5.4) K/mm3 [place] # 0.4 (0.0-0.8) K/mm3 Eos # 0.1 (0.0-0.4) K/mm3 Baso # 0.0 (0.0-0.1) K/mm3 - Imaging and Cardiology EKG: report reviewed, image reviewed Echo: report reviewed (04/2017 showed EF 25-30%, grade 3 diastolic dysfunction. ) Cardiac cath: report reviewed (LHC done 03/2017 for AMI with PCI to mid LAD with JACK, EF 30-35%.LHC done 09/2017 showed minimal CAD (mid LAD to distal LAD lesion 10% stenosed) with patent distal LAD stent, EF 20-34%. ), other (lt main patent, lad distal stent 30% isr and rca patent, lcx patent severe lv dsfyunction) - Telemetry EKG Rhythm: Sinus Rhythm - EKG Sinus rhythms and dysrhythmias: sinus rhythm Myocardial infarction: anterior [place] (old age or i
--- NOTE | 2020-02-23 09:12 | Cardiac Catherization Report ---
LEFT HEART CATHETERIZATION CLINICAL INFORMATION: This is a 59-year-old patient who presents with chest pain, acute systolic heart failure, decreased EF from 35% to 15%. The patient is a smoker, had known SC when LAD stent. Procedure was done with moderate sedation started at 8:39 and finished at 8:54, which is 15 minutes of moderate sedation. PROCEDURE DETAILS: Procedure was performed via the right radial artery, sterile technique, local anesthesia, 6-[place] radial sheath inserted. Left system engaged with JL3.5 catheter. Left main is a medium to large caliber vessel, patent. LAD is a medium to large caliber vessel that has proximal to mid patent, distal stent becomes a small to medium caliber vessel. Stent is patent with mid 20-30% in-stent restenosis. Diagonal 1 is a small to medium caliber and patent. Circumflex is a medium to large caliber vessel, patent, mild irregularities. OM1 and OM2 are small caliber vessel, patent. OM3 and 4 are small to medium caliber vessel, patent with mild luminal irregularities. RCA is a medium caliber vessel that is patent. PDA is a small to medium caliber vessel, patent with mild luminal irregularities. PLV is a small caliber vessel, patent. LV gram done in MAIK and VERGARA shows severe LV dysfunction. LV is dilated, EF 15%. LVEDP of 37 mmHg, LV is 117 mmHg. AO is 116/75. No gradient across the aortic valve on pullback. A 5-[place] catheter all taken over a guidewire, 6-[place] radial sheath was discontinued. Radial band applied. No hematoma, no bleeding. SUMMARY: Left main patent, LAD proximal, mid patent, distal stent patent with 30% in-stent restenosis. The patient has circumflex patent, OM1 and 2 are small and OM3 and 4 are [id number] caliber and patent, RCA patent. Severe left ventricular dysfunction, nonischemic cardiomyopathy, medical management. JOB# [id number] SABINA/DEVANG
[2020-02-23] MEDS: LOSARTAN 25 MG TAB PO SCH (09:34)
[2020-02-23] MEDS: carvediloL 6.25 MG TAB PO SCH (09:35)
[2020-02-23] MEDS: FUROSEMIDE 40 MG TAB PO SCH (12:59)
--- NOTE | 2020-02-23 15:24 | Discharge Summary ---
Providers - Providers Date of Admission: 02/20/20 07:38 Date of discharge: 02/23/20 Attending physician: DIGNA QUEVEDO 02/18/20 16:20 Consult to Physician [CONS] Routine Comment: Consulting Provider: REJI SANDOVAL Physician Instructions: Reason For Exam: Acute on chronic systolic congestive heart failure 02/23/20 08:59 Consult to Cardiac Rehabilitation [CONS] Routine Reason For Exam: Cardiac Rehab Evaluation Primary care physician: MACHINE STEMMER Hospitalization Condition: Fair Pertinent studies: CXR 2d echo LE doppler Hospital course: Very pleasant obese 59-year-old female patient with significant past medical history of coronary artery disease status post PCI, congestive heart failure, Dyslipidemia, noncompliant with medications due to social issues, was admitted through emergency room with worsening shortness of breath, chest pain, 3 pillow orthopnea. Evaluated by core piler, medications optimized, echo showed dilated cardiomyopathy EF of 10 to 15%, s/p heart cath today showed patent stent and no severe coronary stenosis. Patient was recommended for lifevest but she denied. Patient was then discharged home in stable condition. Discharge diagnosis: --Acute on chronic systolic congestive heart failure; EF 10 to 15%, recommended Low-sodium diet, fluid restriction Patient needs LifeVest but she declined, Heart cath showed no severe CAD /Chest pain; resolved 3 sets of cardiac enzymes negative Ischemia work-up/heart cath negative Medications optimized /h/o CAD status post PCI; Continue current cardiac medications Aspirin Plavix beta blockers STEVENSON inhibitors nitrates Heart cath showed patent stent / Peripheral vascular disease ; cont aspirin and statin lower extremity arterial Doppler ordered /Dyslipidemia; continue statin, Low-cholesterol diet /Obesity; BMI 33.7, patient advised weight reduction /Ongoing tobacco use; advised smoking cessation Nicotine patch as needed --DVT prophylaxis; Lovenox --Full CODE STATUS Disposition; home Hospitalist Physical General appearance: Present: no acute distress, well-nourished, obese - EENT Eyes: Present: PERRL, EOM intact - Neck Neck: Present: supple, normal ROM - Respiratory Respiratory effort: normal Respiratory: bilateral: diminished, negative: rales, rhonchi, wheezing - Cardiovascular Rhythm: regular Heart Sounds: Present: S1 & S2 - Extremities Extremities: no ischemia, No edema - Abdominal General gastrointestinal: soft, non-tender, non-distended, normal bowel sounds - Integumentary Integumentary: Present: clear, warm - Psychiatric Psychiatric: appropriate mood/affect, cooperative - Neurologic Neurologic: CNII-XII intact, moves all extremities Disposition: DC-30 STILL A PATIENT Time spent for discharge: 34 minutes Core Measure Documentation - Palliative Care Palliative Care/ Comfort Measures: Not Applicable - Core Measures Any of the following diagnoses?: none Exam - Constitutional Vitals: Temp Pulse Resp BP Pulse Ox 97.6 F 77 16 103/60 99 02/23/20 03:42 02/23/20 10:30 02/23/20 03:42 02/23/20 11:39 02/23/20 10:30 Plan Activity: advance as tolerated Weight Bearing Status: Weight Bear as Tolerated Diet: low fat, low salt Special Instructions: restrict fluid intake to (1.2 L per day), record daily weights Follow up with: JASON VELASCO MD [Staff Physician] - 7 Days ([facility], 03/02/2020 @ 12:30PM) PRIMARY CAREMD [Primary Care Provider] - 7 Days Prescriptions: AtorvaSTATin [Lipitor] 80 mg PO QHS #30 tablet Aspirin [Aspirin BABY CHEW TAB] 81 mg PO QDAY #30 tab.chew carvediloL [Coreg] 6.25 mg PO BID #60 tablet Furosemide [Lasix TAB] 40 mg PO QDAY #30 tablet Nitroglycerin [Nitrostat] 0.4 mg SL .Q5MIN PRN #30 tablet PRN Reason: Chest Pain Clopidogrel [Plavix] 75 mg PO QDAY #30 tablet lisinopriL [Zestril TAB] 5 mg PO QDAY #30 tablet
[2020-02-23 16:30] VITALS: BP 119/86
--- NOTE | 2020-02-23 16:39 | Vascular Lab Report ---
DUPLEX DOPPLER LOWER EXTREMITY ARTERIAL, BILATERAL INDICATION / CLINICAL INFORMATION: leg pain and foot discoloration. TECHNIQUE: Arterial duplex examination of both lower extremities performed using B-mode, color flow and spectral Doppler assessment. FINDINGS: RIGHT: Common Femoral Artery: PSV 100 cm/sec. Triphasic waveform. Proximal SFA: PSV 84 cm/sec. Triphasic waveform. Mid SFA: PSV 91 cm/sec. Triphasic waveform. Distal SFA: PSV 84 cm/sec. Triphasic waveform. Popliteal artery: PSV 61 cm/sec. Triphasic waveform. Posterior tibial artery: PSV 67 cm/sec. Triphasic waveform. Dorsalis Pedis Artery: PSV 57 cm/sec. Triphasic waveform. LEFT: Common Femoral Artery: PSV 85 cm/sec. Triphasic waveform. Proximal SFA: PSV 90 cm/sec. Triphasic waveform. Mid SFA: PSV 75 cm/sec. Triphasic waveform. Distal SFA: PSV 96 cm/sec. Triphasic waveform. Popliteal artery: PSV 67 cm/sec. Triphasic waveform. Posterior tibial artery: PSV 20 cm/sec. Triphasic waveform. Dorsalis Pedis Artery: PSV 89 cm/sec. Triphasic waveform. Right ORIANA: Not performed. Left ORIANA: Not performed. IMPRESSION: 1. No significant lower extremity peripheral artery disease. Ankle-Brachial Index (ORIANA): - Calcified arteries > 1.4 - Normal = 0.9-1.4 - Mild PAD = 0.7-0.89 - Moderate PAD = 0.51-0.69 - Severe PAD < 0.5 Doppler Waveform: - Triphasic is normal. - Biphasic is abnormal if clear transition from triphasic signal along vascular tree. - Monophasic is abnormal. Signer Name: Ajay Swain MD Signed: 02/23/2020 4:34 PM Workstation Name: [id number]
== END 2020-02-23 17:40 | disposition home or self-care (01) | DRG 286 ==
LOC: ED 09:49 → 4A 11:18 → OBSVTOIN 02-20 07:38
PROVIDERS: ADMIT Internal Medicine; ATTEND Internal Medicine
PROC: 4A023N7 Measurement of Cardiac Sampling and Pressure, Left Heart, Percutaneous Approach (ICD-10-PCS; principal; 2020-02-23)
PROC: B2111ZZ Fluoroscopy of Multiple Coronary Arteries using Low Osmolar Contrast (ICD-10-PCS; 2020-02-23)
PROC: B2151ZZ Fluoroscopy of Left Heart using Low Osmolar Contrast (ICD-10-PCS; 2020-02-23)
DX: T82.855A Stenosis of coronary artery stent, initial encounter (principal); I50.23 Acute on chronic systolic (congestive) heart failure; J96.01 Acute respiratory failure with hypoxia; I42.0 Dilated cardiomyopathy; I11.0 Hypertensive heart disease with heart failure; I73.9 Peripheral vascular disease, unspecified; E66.9 Obesity, unspecified; F17.200 Nicotine dependence, unspecified, uncomplicated; I25.118 Atherosclerotic heart disease of native coronary artery with other forms of angina pectoris; E78.2 Mixed hyperlipidemia; Y83.8 Other surgical procedures as the cause of abnormal reaction of the patient, or of later complication, without mention of misadventure at the time of the procedure; Z91.14 Patient's other noncompliance with medication regimen; Z95.5 Presence of coronary angioplasty implant and graft; Z71.6 Tobacco abuse counseling; Z68.33 Body mass index [BMI] 33.0-33.9, adult; Z71.3 Dietary counseling and surveillance; Z82.49 Family history of ischemic heart disease and other diseases of the circulatory system; Z79.82 Long term (current) use of aspirin; Z79.899 Other long term (current) drug therapy; I25.2 Old myocardial infarction; Y92.89 Other specified places as the place of occurrence of the external cause
CPT/HCPCS: 36415; 71045; 80048; 80061; 82550; 82553; 82962; 83735; 83880; 84484; 84703; 85025; 85027; 85610; 85730; 93005; 93306; 93458; 93925; G0378; A9270-GY; C1894; J1644; J1650; J1940; J2250; J2405; J3010; J7040; Q9967